=== PATIENT | female | born 1960 | race Caucasian/White ===

== ENCOUNTER 2017-04-26 04:07 | Inpatient (IN) | payer MEDICARE ==
[~2017-04-26] VITALS: Ht 162.6 cm; Wt 59.0 kg
[~2017-04-26 04:07] MED LIST: CIPRO500 MG PO; PREDNISONE20 MG PO; PROAIR HFA INH8.5 GM
[2017-04-26] MEDS ORDERED: ALBUTEROL SULF 0.083% NEB SOLN 3 ML NEB NEB STA (04:10)
[2017-04-26] MEDS ORDERED: IPRATROPIUM BROMIDE 0.02% 2.5 ML NEB NEB ONE (04:15)
[2017-04-26 04:27] LABS: BASOPHILS % 0.5 % (0.0-1.0); HEMATOCRIT 37.8 % (34.2-44.1); LYMPHOCYTES % 15.9 % (18.0-39.1); MEAN CORPUSCULAR HEMOGLOBIN 28.2 pg (28-32); MEAN CORPUSCULAR HGB CONC 31.7 g/dL (31-35); MEAN CORPUSCULAR VOLUME 88.9 fL (81-99); MONOCYTES # (AUTO) 0.7 (0.2-0.8); MONOCYTES % 11.5 % (4.4-11.3); NEUTROPHILS # (AUTO) 4.4 (2.1-6.9); NEUTROPHILS % 71.9 % (38.7-80.0); PLATELET COUNT 281 x10e3/uL (140-360); RED BLOOD COUNT 4.25 x10e6/uL (3.6-5.1); RED CELL DISTRIBUTION WIDTH 17.4 % (11.7-14.4)
[2017-04-26 04:43] LABS: ALANINE AMINOTRANSFERASE 10 IU/L (0-55); ALBUMIN 2.8 g/dL (3.5-5.0); ALBUMIN/GLOBULIN RATIO 0.7 (0.8-2.0); ALKALINE PHOSPHATASE 89 IU/L (40-150); ANION GAP 12.5 mmol/L (8-16); BLOOD UREA NITROGEN 17 mg/dL (7-26); BUN/CREATININE RATIO 16 (6-25); CALCIUM 9.1 mg/dL (8.4-10.2); CARBON DIOXIDE 29 mmol/L (22-29); CHLORIDE 96 mmol/L (98-107); CREATINE KINASE 16 IU/L (29-168); CREATININE, SERUM 1.05 mg/dL (0.57-1.11); EST GLOMERULAR FILTRATION RATE 54 ML/MIN (60-); GLUCOSE 240 mg/dL (74-118); POTASSIUM 4.5 mmol/L (3.5-5.1); SODIUM 133 mmol/L (136-145)
[2017-04-26 04:49] LABS: B-TYPE NATRIURETIC PEPTIDE2 85.6 pg/mL (0-100)
[2017-04-26 04:51] LABS: TROPONIN I 0.053 ng/mL (0-0.300)
[2017-04-26 05:12] LABS: BILIRUBIN,URINE NEGATIVE (NEGATIVE); KETONES,URINE NEGATIVE (NEGATIVE); LEUKOCYTE ESTERASE ,URINE NEGATIVE (NEGATIVE); NITRITE,URINE NEGATIVE (NEGATIVE); PROTEIN,URINE DIPSTICK 3+ (NEGATIVE); URINE UROBILINOGEN 0.2 mg/dL (0.2 - 1)
[2017-04-26 05:13] LABS: CLARITY,URINE CLEAR (CLEAR); COLOR,URINE YELLOW (YELLOW)
[2017-04-26 05:17] LABS: EPITHELIAL CELLS,URINE MODERATE /LPF; WBC,URINE (MAN) 0-5 /HPF (0-5)
--- NOTE | 2017-04-26 06:06 | Diagnostic Imaging Report ---
EXAMINATION: CHEST SINGLE (PORTABLE) INDICATION: Shortness of breath COMPARISON: None FINDINGS: TUBES and LINES: None. LUNGS: Lungs are not well inflated. There are bibasilar atelectasis. There is mild prominence of the central pulmonary vasculature, consistent with pulmonary venous congestion. PLEURA: No pleural effusion or pneumothorax. HEART AND MEDIASTINUM: The cardiomediastinal silhouette is unremarkable. BONES AND SOFT TISSUES: No acute osseous lesion. Partially visualized left humeral medullary leo. Soft tissues are unremarkable. UPPER ABDOMEN: No free air under the diaphragm. IMPRESSION: No acute thoracic abnormality. Signed by: Dr. Masoud Bunch M.D. on 04/26/2017 6:03 AM
[2017-04-26] MEDS ORDERED: ONDANSETRON HCL INJ 2 MG/ML VIAL IV PRN (06:15)
[2017-04-26] MEDS ORDERED: ACETAMINOPHEN 325 MG TAB PO PRN (06:15)
[2017-04-26] MEDS: OSELTAMIVIR PHOSPHATE 75 MG CAP PO SCH ×3 (06:25→18:06)
[2017-04-26] MEDS ORDERED: CEFTRIAXONE SOD 1 GM VIAL IV SCH (07:00)
[2017-04-26] MEDS: ALBUTEROL/IPRATROPIUM 3 ML NEB NEB SCH ×5 (07:36→23:45)
[2017-04-26 09:47] LABS: ABG HCO3 30 mmol/L (23-28); ABG PCO2 58 mmHg (41-51); ABG PH 7.32 (7.31-7.41); ABG PO2 186 mmHg (80-105)
[2017-04-26] MEDS: SODIUM CHLORIDE 0.9% 1000ML 1,000 ML IV SCH ×3 (09:57→21:38)
[2017-04-26] MEDS: METHYLPREDNISOLONE SOD SUCC 40 MG/ML VIAL IV SCH ×2 (09:58→18:06)
[2017-04-26] MEDS ORDERED: ALBUTEROL SULFATE HFA 8GM INHALATION AEROSOL INH SCH (11:00)
[2017-04-26] MEDS ORDERED: ALBUTEROL SULFATE HFA 8GM INHALATION AEROSOL INH PRN (12:15)
[2017-04-26] MEDS ORDERED: HYDROCODONE/APAP 5MG-325MG TAB PO ONE (12:30)
[2017-04-26 12:46] LABS: CREATINE KINASE MB 0.8 ng/mL (0.00-5.00); TROPONIN I 0.027 ng/mL (0-0.300)
--- NOTE | 2017-04-26 12:54 | History and Physical ---
She is a 56-year-old female, a patient of mine, who presented to the emergency room with complaint of shortness of breath. HISTORY OF PRESENT ILLNESS: Ms. Alma Austin is a 56-year-old female patient who presented with complaint of cough, congestion, and shortness of breath, which was worsening. It started 10 days ago. The patient has shortness of breath, which was noted and worsening when walking and exertion. The patient was having a cough and dyspnea. The patient has history of CHF and emphysema. REVIEW OF SYSTEMS: The patient has a cough, sore throat, shortness of breath, wheezing. Denies nausea or vomiting. PAST MEDICAL HISTORY: CHF and emphysema. PAST SURGICAL HISTORY: Shoulder repair. ALLERGIES: NO KNOWN DRUG ALLERGIES. MEDICATIONS: See from the list. SOCIAL HISTORY: This patient is a heavy smoker. Denies using alcohol. FAMILY HISTORY: Hypertension. PHYSICAL EXAMINATION GENERAL: She is a middle-aged female patient lying in bed, not in acute distress. VITAL SIGNS: Temperature 99.9, pulse rate 120, blood pressure 117/72, respirations 28. HEENT: Normocephalic, atraumatic. The patient is on a BiPAP mask ventilation. LUNGS: Bilateral diminished air entry, with rales and rhonchi present. HEART: S1 and S2 regular. A systolic murmur is present. ABDOMEN: Soft. Bowel sounds are present. NEUROLOGIC: No focal neurological deficit. ADMITTING IMPRESSION AND DIAGNOSES 1. Respiratory failure. 2. Pneumonia. 3. Chronic obstructive pulmonary disease with exacerbation. 4. Congestive heart failure. 5. Influenza. PLAN: The patient will be admitted with the above diagnoses. The patient will be given a BiPAP mask ventilation. The patient was given IV Solu-Medrol. The patient was also given Tamiflu. We are going to give her antibiotic Rocephin and Zithromax. We will obtain pulmonary and cardiology consultations. Job#: [id number]
[2017-04-26] MEDS: AZITHROMYCIN 500MG/NS 250 ML 250 ML IV SCH (13:15)
[2017-04-26] MEDS: CEFTRIAXONE SOD 1 GM VIAL IV SCH (18:06)
[2017-04-26] MEDS: BUDESONIDE/FORMOTEROL 160/4.5MCG INHALER INH SCH (19:00)
[2017-04-26 21:37] LABS: CREATINE KINASE MB 1.2 ng/mL (0.00-5.00); TROPONIN I 0.02 ng/mL (0-0.300)
--- NOTE | 2017-04-26 21:56 | Consultation ---
DATE OF CONSULTATION: April 26, 2017 PULMONARY CONSULTATION REQUESTING PHYSICIAN: Dr. Abilio Bansal. REASON FOR CONSULTATION: COPD. HISTORY OF PRESENT ILLNESS: Ms. Austin is a 56-year-old woman with history of hypertension and COPD, not on home oxygen, who presented to the hospital with complaint of shortness of breath. She states that she was recently hospitalized at [facility] on [address] where she was diagnosed with gastric infection. She states that she was having respiratory problems towards the end of the hospitalization and was discharged on nebulized Albuterol in addition to her usual inhalers. Typically, she uses Symbicort as well as p.r.n. Albuterol. She states that she has been having worsening shortness of breath over the last 3 days with a cough that is productive of yellow mucus. She is not short of breath at rest, but she is short of breath with even minimal exertion. She denies any fever or chills. She has a grandson at home who has been sick with respiratory problems. She has a previous history of smoking, but quit about 5 years ago. When she was seen in the emergency department, she was found to have poor air movement with wheezing and was started on bronchodilators as well as IV steroids for COPD. She was placed on BiPAP for relatively short period of time, but is currently on nasal cannula. She states that she is feeling fine when she is at rest, but again has shortness of breath with minimal exertion. REVIEW OF SYSTEMS: Positive for cough, shortness of breath with exertion, wheezing, chest tightness, fatigue. Otherwise, a 12-point review of systems was conducted and was found to be negative. PAST MEDICAL HISTORY: 1. Hypertension. 2. Chronic obstructive pulmonary disease. FAMILY HISTORY: History of asthma in her daughter. SOCIAL HISTORY: She quit smoking about 5 years ago. She was smoking 2 packs of cigarettes daily for about 20 years. ALLERGIES: NO KNOWN DRUG ALLERGIES. MEDICATIONS: Current medications include Albuterol, ipratropium, ceftriaxone, Solu-Medrol, Tamiflu, azithromycin, Zofran, Tylenol. PHYSICAL EXAMINATION VITAL SIGNS: Temperature 97.9 degrees Fahrenheit, heart rate 93, respiratory rate 24, oxygen saturation 94% on 2 liters nasal cannula. Blood pressure 94/63. GENERAL: The patient is lying in bed, in no distress, appears comfortable. EYES: Sclerae are anicteric. Conjunctivae pink. ENT: No oral lesions. Oral mucosa is moist. CHEST: She has decreased air movement bilaterally. Mild tachypnea. HEART: Regular rate and rhythm. S1 and S2. No murmurs. ABDOMEN: Soft, nontender, nondistended. Bowel sounds normoactive. EXTREMITIES: No edema, no cyanosis, no clubbing. SKIN: No rashes or bruises. NEUROLOGIC: Pupils are equally round and reactive to light. No facial droop. No nystagmus. LABORATORY DATA: Sodium 133, potassium 4.5, chloride 96, bicarbonate 29, creatinine 1.05, glucose 240, AST 17, ALT 10, CK 16, CK MB 0.6, troponin I 0.05, BNP 85, albumin 2.8. White blood cell count 6.1, hemoglobin 12, platelets 281,000. Urinalysis with 3+ protein, trace glucose, 1+ blood, 6-10 red blood cells, 0-5 red blood cells. Arterial blood gas showed pH of 7.32, pCO2 of 58, pO2 of 186. Influenza A antigen positive. IMAGING: One view chest x-ray which showed prominent central pulmonary vasculature, bibasilar atelectasis. IMPRESSION: Ms. Austin is a 56-year-old woman with history of hypertension and COPD who presented to the hospital with acute COPD exacerbation with acute on chronic hypercapnic respiratory failure. She appears to be improving with bronchodilator therapy and steroids. PLAN: 1. I agree with continuing with bronchodilator therapy as well as IV steroids. I will add Symbicort as well, which is her usual home medication for controller therapy. Will try to wean the IV steroids as her respiratory status improves. 2. She is on azithromycin and ceftriaxone. We can continue a 5-day course of azithromycin for COPD exacerbation. 3. She has influenza A infection for which she is on Tamiflu and complete a 5-day course of that as well. 4. I would start her on Lovenox for DVT prophylaxis. 5. Will wean the nasal cannula to maintain oxygen saturation greater than 89% and avoid hyperoxygenation. Thank you very much for the consultation. Will continue to follow with you, and please feel free to call if any questions. Job#: [id number]
[2017-04-26] MEDS: HYDROCODONE/APAP 5MG-325MG TAB PO PRN (22:09)
[2017-04-27] MEDS: ALBUTEROL/IPRATROPIUM 3 ML NEB NEB SCH ×6 (00:05→18:45)
[2017-04-27] MEDS: SODIUM CHLORIDE 0.9% 1000ML 1,000 ML IV SCH ×4 (05:00→20:12)
[2017-04-27] MEDS: METHYLPREDNISOLONE SOD SUCC 40 MG/ML VIAL IV SCH ×4 (05:00→17:15)
[2017-04-27 06:53] VITALS: BP 106/66
[2017-04-27] MEDS: CEFTRIAXONE SOD 1 GM VIAL IV SCH ×2 (06:53→20:12)
[2017-04-27] MEDS: HYDROCODONE/APAP 5MG-325MG TAB PO PRN ×3 (06:53→20:13)
[2017-04-27 08:00] VITALS: BP 159/74
[2017-04-27 08:04] LABS: BASOPHILS % 0.1 % (0.0-1.0); HEMATOCRIT 35.2 % (34.2-44.1); HEMOGLOBIN 11.1 g/dL (12.0-16.0); LYMPHOCYTES # (AUTO) 0.6 (1.0-3.2); LYMPHOCYTES % 7.5 % (18.0-39.1); MEAN CORPUSCULAR HEMOGLOBIN 28.3 pg (28-32); MEAN CORPUSCULAR HGB CONC 31.5 g/dL (31-35); MEAN CORPUSCULAR VOLUME 89.8 fL (81-99); MONOCYTES # (AUTO) 0.6 (0.2-0.8); MONOCYTES % 7.8 % (4.4-11.3); NEUTROPHILS # (AUTO) 6.2 (2.1-6.9); NEUTROPHILS % 84.3 % (38.7-80.0); PLATELET COUNT 241 x10e3/uL (140-360); RED BLOOD COUNT 3.92 x10e6/uL (3.6-5.1)
[2017-04-27 08:15] LABS: ALANINE AMINOTRANSFERASE 8 IU/L (0-55); ALBUMIN 2.3 g/dL (3.5-5.0); ALBUMIN/GLOBULIN RATIO 0.7 (0.8-2.0); ALKALINE PHOSPHATASE 68 IU/L (40-150); ANION GAP 13.8 mmol/L (8-16); BLOOD UREA NITROGEN 27 mg/dL (7-26); BUN/CREATININE RATIO 30 (6-25); CALCIUM 8.5 mg/dL (8.4-10.2); CARBON DIOXIDE 28 mmol/L (22-29); CHLORIDE 100 mmol/L (98-107); EST GLOMERULAR FILTRATION RATE > 60 ML/MIN (60-); GLUCOSE 319 mg/dL (74-118); POTASSIUM 4.8 mmol/L (3.5-5.1); SODIUM 137 mmol/L (136-145)
[2017-04-27] MEDS: OSELTAMIVIR PHOSPHATE 75 MG CAP PO SCH ×2 (10:16→16:40)
[2017-04-27] MEDS: ENOXAPARIN SOD INJ 40 MG/0.4 ML SYR SC SCH (10:17)
[2017-04-27] MEDS: AZITHROMYCIN 500MG/NS 250 ML 250 ML IV SCH (11:00)
[2017-04-27] MEDS: BUDESONIDE/FORMOTEROL 160/4.5MCG INHALER INH SCH ×2 (12:07→18:45)
--- NOTE | 2017-04-27 15:20 | Consultation ---
DATE OF CONSULTATION: April 26, 2017 REASON FOR CONSULTATION: CHF. CONSULTING PHYSICIAN: Dr. Abilio Bansal. HISTORY OF PRESENT ILLNESS: This is a 56-year-old female that presented with shortness of breath. She was found to have flu positive and she was admitted. She was complaining of shortness of breath on exertion, unable to carry out activity of daily living, she came in for evaluation. She was told in the past she has a history of CHF and hypertension, but was not on any medication. Her troponin was negative. EKG showed normal sinus reading. BNP 85.6. PAST MEDICAL HISTORY: Hypertension, COPD, and CHF. PAST SURGICAL HISTORY: Shoulder repair. FAMILY HISTORY: Positive for COPD. SOCIAL HISTORY: Lives at home with family. She quit smoking 5 years ago. MEDICATIONS: She was on albuterol inhaler at home. ALLERGIES: SHE IS NOT ALLERGIC TO ANY MEDICATION. REVIEW OF SYSTEMS: Negative except those mentioned above. She is positive for flu and COPD exacerbation. PHYSICAL EXAMINATION VITAL SIGNS: Temperature 99, heart rate 90, blood pressure 106/66, respirations 18, and oxygen saturation 97% on 3 liters nasal cannula. GENERAL: She is awake alert and oriented times 3. HEENT: Mucous membrane moist. NECK: Supple. LUNGS: Bilateral with decreased breath sounds. CARDIOVASCULAR: S1 and S2 present. ABDOMEN: Soft. NEUROLOGIC: Intact. EXTREMITIES: With no edema. LABORATORY DATA: Sodium 133, potassium 4.5, chloride 96, CO2 of 29, BUN 17, creatinine 1.05, and glucose 240. White blood cells 6.11, hemoglobin 12, hematocrit 37.8, and platelet 281. IMPRESSION 1. Possible congestive heart failure. 2. Flu positive. 3. Chronic obstructive pulmonary disease exacerbation. 4. Hypertension. ASSESSMENT AND PLAN: She has no clinical symptoms of CHF, but we will get an echocardiogram to assess the LV and the valve function. Her BNP is normal. Continue antibiotics and neb treatment. Further cardiac workup pending clinical course. Thank you for this consultation. DICTATED BY: JUDE POND NP Job#: [id number] SAK
[2017-04-27 17:11] VITALS: BP 115/56
[2017-04-27 18:22] VITALS: BP 115/56
[2017-04-27] MEDS ORDERED: LEVOFLOXACIN 500MG/D5W 100ML 100 ML IV SCH (18:45)
--- NOTE | 2017-04-28 01:17 | Progress Note ---
DATE: April 27, 2017 SUBJECTIVE: Patient was seen and evaluated in the ER. She is still on hold as they have been unable to get a bed for her. She actually has not needed to use BiPAP. Currently, is on nasal cannula. Seen along with her son. She is currently getting breathing treatment. Has been treated with Symbicort. She uses this at home, but the son who is at home states that the technique has not been appropriate. She is currently on Tamiflu for influenza. CURRENT MEDICATIONS: Albuterol, acetaminophen, ceftriaxone, azithromycin, prednisolone, ondansetron, budesonide, Tamiflu. LABS: Sodium 137, potassium 4.8, chloride 100, CO2 28, creatinine 0.9. Hemoglobin is 9.1. Bili 0.3. PHYSICAL EXAMINATION GENERAL: Elderly appearing female who does not appear in distress. HEENT: Anicteric sclerae. Oral mucosa is moist. NECK: Supple. CV: S1 and S2 heard. RESPIRATORY: Good expansion. I am not able to appreciate any wheezes. ABDOMEN: Soft and protuberant. EXTREMITIES: Has no cyanosis or clubbing. Past medical history and social history has been reviewed. IMPRESSION 1. Chronic obstructive pulmonary disease, acute exacerbation. 2. Hkuke-ep-hiqywnb hypercapnic failure. 3. Influenza A and bronchitis. 4. Need for use mechanical ventilator. PLAN: Patient will be continued on Tamiflu to complete 5 days. She is currently on ceftriaxone and azithromycin. I will go ahead and wean the steroids to methylprednisolone q.12 h., which I think is appropriate. She is getting inhalers on nasal cannula. I think she can go down to telemetry. I discussed this with the nursing staff. I also discussed with the son. Job#: [id number] NATIVIDAD
[2017-04-28] MEDS: ALBUTEROL/IPRATROPIUM 3 ML NEB NEB SCH ×5 (04:15→20:45)
[2017-04-28 04:18] VITALS: BP 108/70
[2017-04-28] MEDS: HYDROCODONE/APAP 5MG-325MG TAB PO PRN ×3 (05:47→17:42)
[2017-04-28] MEDS ORDERED: METHYLPREDNISOLONE SOD SUCC 40 MG/ML VIAL IV SCH (06:00)
[2017-04-28] MEDS: SODIUM CHLORIDE 0.9% 1000ML 1,000 ML IV SCH (06:05)
[2017-04-28] MEDS: BUDESONIDE/FORMOTEROL 160/4.5MCG INHALER INH SCH ×2 (07:00→19:00)
[2017-04-28] MEDS: CEFTRIAXONE SOD 1 GM VIAL IV SCH (07:35)
[2017-04-28] MEDS: ENOXAPARIN SOD INJ 40 MG/0.4 ML SYR SC SCH (09:37)
[2017-04-28] MEDS: OSELTAMIVIR PHOSPHATE 75 MG CAP PO SCH ×2 (09:37→17:42)
[2017-04-28] MEDS: AZITHROMYCIN 500MG/NS 250 ML 250 ML IV SCH (11:21)
[2017-04-28 20:00] VITALS: BP 144/84
[2017-04-28 20:45] VITALS: BP 144/84
[2017-04-29] VITALS: BP 159/88
[2017-04-29] MEDS: ALBUTEROL/IPRATROPIUM 3 ML NEB NEB SCH ×3 (00:15→11:09)
[2017-04-29] MEDS: CEFTRIAXONE SOD 1 GM VIAL IV SCH (06:00)
[2017-04-29 06:39] LABS: BASOPHILS % 0.2 % (0.0-1.0); EOSINOPHILS % 0.2 % (0.0-6.0); HEMATOCRIT 32.6 % (34.2-44.1); HEMOGLOBIN 10.2 g/dL (12.0-16.0); LYMPHOCYTES # (AUTO) 1.5 (1.0-3.2); LYMPHOCYTES % 34.2 % (18.0-39.1); MEAN CORPUSCULAR HEMOGLOBIN 28.5 pg (28-32); MEAN CORPUSCULAR HGB CONC 31.3 g/dL (31-35); MEAN CORPUSCULAR VOLUME 91.1 fL (81-99); MONOCYTES # (AUTO) 0.6 (0.2-0.8); MONOCYTES % 12.8 % (4.4-11.3); NEUTROPHILS # (AUTO) 2.3 (2.1-6.9); NEUTROPHILS % 52.4 % (38.7-80.0); PLATELET COUNT 209 x10e3/uL (140-360); RED BLOOD COUNT 3.58 x10e6/uL (3.6-5.1); RED CELL DISTRIBUTION WIDTH 17.1 % (11.7-14.4)
[2017-04-29] MEDS: BUDESONIDE/FORMOTEROL 160/4.5MCG INHALER INH SCH (07:00)
[2017-04-29 07:14] LABS: ALANINE AMINOTRANSFERASE 11 IU/L (0-55); ALBUMIN 2.2 g/dL (3.5-5.0); ALBUMIN/GLOBULIN RATIO 0.8 (0.8-2.0); ALKALINE PHOSPHATASE 60 IU/L (40-150); ANION GAP 10.5 mmol/L (8-16); BLOOD UREA NITROGEN 22 mg/dL (7-26); BUN/CREATININE RATIO 32 (6-25); CALCIUM 8.7 mg/dL (8.4-10.2); CARBON DIOXIDE 29 mmol/L (22-29); CHLORIDE 106 mmol/L (98-107); CREATININE, SERUM 0.69 mg/dL (0.57-1.11); EST GLOMERULAR FILTRATION RATE > 60 ML/MIN (60-); GLUCOSE 147 mg/dL (74-118); POTASSIUM 4.5 mmol/L (3.5-5.1); SODIUM 141 mmol/L (136-145)
[2017-04-29 08:00] VITALS: BP 110/66
[2017-04-29] MEDS: OSELTAMIVIR PHOSPHATE 75 MG CAP PO SCH (08:25)
[2017-04-29] MEDS: ENOXAPARIN SOD INJ 40 MG/0.4 ML SYR SC SCH (08:25)
[2017-04-29] MEDS ORDERED: PREDNISONE 20 MG TAB PO SCH (09:00)
[2017-04-29 10:06] LABS: LYMPHOCYTES % (MANUAL) 33 % (19-48); MONOCYTES % (MANUAL) 10 % (3.4-9.0); NEUTROPHILS % (MANUAL) 51 % (40-74)
[2017-04-29 10:07] LABS: ANISOCYTOSIS SLIGHT; HYPOCHROMASIA SLIGHT; PLATELET ESTIMATE ADEQUATE; PLATELET MORPHOLOGY COMMENT NORMAL; RBC MORPHOLOGY COMMENT NORMAL
[2017-04-29] MEDS ORDERED: METOPROLOL TARTRATE INJ 1 MG/ML VIAL IV PRN (10:30)
[2017-04-29] MEDS: AZITHROMYCIN 500MG/NS 250 ML 250 ML IV SCH (11:00)
[2017-04-29 12:00] VITALS: BP 146/84
--- NOTE | 2017-04-29 14:20 | Discharge Summary ---
This is a 56-year-old female patient of mine, presented with a complaint of severe cough and fever and weakness. ADMITTING PATIENT DIAGNOSES 1. Acute respiratory insufficiency. 2. Pneumonia. 3. Influenza. 4. Chronic obstructive pulmonary disease exacerbation. 5. Congestive heart failure. HOSPITAL COURSE SUMMARY: Patient was admitted with above diagnoses. Patient was treated with Tamiflu, neb treatment, IV antibiotics and IV Solu-Medrol, and pulmonary and cardiology consultation was called. Telemetry monitoring was done and the patient was stabilized, and patient was given physical therapy and occupational therapy also. Patient was treated with IV Rocephin and Zithromax. Patient had a chest x-ray done, which was negative. Patient had a flu test done that was positive. Now upon stabilization, patient will be discharged home with finishing dose of the Tamiflu and Ceftin antibiotic and neb treatment. Patient will be followed up as an outpatient. Job#: [id number] SAK
== END 2017-04-29 12:41 | disposition home or self-care (01) | DRG 189 ==
LOC: ER 04:07 → ERHOLD 06:19 → MED/SURG2 04-28 17:57
PROVIDERS: ADMIT Internal Medicine; ATTEND Internal Medicine
DX: J96.22 Acute and chronic respiratory failure with hypercapnia (principal); J44.0 Chronic obstructive pulmonary disease with (acute) lower respiratory infection; E87.8 Other disorders of electrolyte and fluid balance, not elsewhere classified; I50.9 Heart failure, unspecified; E87.1 Hypo-osmolality and hyponatremia; J44.1 Chronic obstructive pulmonary disease with (acute) exacerbation; J45.909 Unspecified asthma, uncomplicated; J11.1 Influenza due to unidentified influenza virus with other respiratory manifestations; R73.9 Hyperglycemia, unspecified; J40 Bronchitis, not specified as acute or chronic; F17.210 Nicotine dependence, cigarettes, uncomplicated
CPT/HCPCS: 36415; 36600; 71010; 80053; 81001; 82550; 82553; 82805; 82948; 83605; 83880; 84484; 85025; 87040; 87086; 87400; 93005; 93306; 94640; 94660; 97139; 99285; J0456; J0696; J1650; J2920; J7030

== ENCOUNTER → 2017-08-24 | Outpatient (CLI) | payer MEDICARE ==
--- NOTE | 2017-08-27 08:57 | Diagnostic Imaging Report ---
#[id number] - MGSCRBIL #BILATERAL DIGITAL SCREENING MAMMOGRAM WITH CAD: 08/24/2017 CLINICAL: Routine screening. No prior exams were available for comparison. Current study contains 4 films. The tissue of both breasts is predominantly fatty. Current study was also evaluated with a Computer Aided Detection (CAD) system. There are benign calcifications in both breasts. No significant masses, calcifications, or other findings are seen in either breast. IMPRESSION: BENIGN There is no mammographic evidence of malignancy. A 1 year screening mammogram is recommended. The patient will be notified by letter of the results. Catrachito neves/rowena:08/26/2017 12:10:40 Hot Plate Plywood Press Operator: Nilda SHELTON(R)(M), [facility] letter sent: Normal Exam Mammogram BI-RADS: 2 Benign
== END ==
LOC: MAMMO 09:09
PROVIDERS: ATTEND Internal Medicine
DX: Z12.31 Encounter for screening mammogram for malignant neoplasm of breast (principal)
CPT/HCPCS: 77067

== ENCOUNTER 2018-02-04 12:33 | Inpatient (IN) | payer MEDICARE ==
[2018-02-04] VITALS (15 sets, daily range): BP systolic 99–118; BP diastolic 56–69
[~2018-02-04] VITALS: Ht 162.6 cm; Wt 75.8 kg
[2018-02-04] MEDS ORDERED: IPRATROPIUM BROMIDE 0.02% 2.5 ML NEB NEB STA (12:36)
--- OUTSIDE RECORDS SUMMARY | 2018-02-04 12:36 | XMS REPORT ---
Author Author [facility] Address Unknown Phone Unavailable Care Team Providers Care Flower Pot Press Operator Name Role Phone Teresita LARA Unavailable Unavailable Chantal TURCIOS Unavailable Unavailable Problems This patient has no known problems. Allergies, Adverse Reactions, Alerts This patient has no known allergies or adverse reactions. Medications This patient has no known medications. Results Test Description Test Time Test Comments Text Results Atomic Results Result Comments MAMMOGRAPHY DIGITAL SCR BILAT [place] [address] Patient Name: FLACO SORIANO MR #: [id number] : 1960 Age/Sex: 56/F Req #: [id number] Adm Physician: Ordered by: PAULA LARA MD Report #: [id number] Location: MAMMO Room/Bed: Procedure: [id number] MG/MAMMOGRAPHY DIGITAL SCR BILAT Exam Date: 08/24/17 Exam Time: 0946 REPORT STATUS: Signed #[id number] - MGSCRBIL #BILATERAL DIGITAL SCREENING MAMMOGRAM WITH CAD: 08/24/2017 CLINICAL: Routine screening. No prior exams were available for comparison. Current study contains 4 films. The tissue of both breasts is predominantly fatty. Current study was also evaluated with a Computer Aided Detection (CAD) system. There are benign calcifications in both breasts. No significant masses, calcifications, or other findings are seen in either breast. IMPRESSION: BENIGN There is no mammographic evidence of malignancy. A 1 year screening mammogram is recommended. The patient will be notified by letter of the results. Adri neves/edilma:08/26/2017 12:10:40 Metal Grader: Nilda ALFRED)(Teresita), [facility] lexis er sent: Normal Exam Mammogram BI-RADS: 2 Benign Dictated By: ADRI MAN DO 1210 Transcribed By: EDILMA on 08/26/17 1210 COPY TO: PAULA LARA MD CHEST SINGLE (PORTABLE) [place] [id number] Patient Name: FLACO SORIANO MR #: [id number] : 1960 Age/Sex: 56/F Req #: [id number] Adm Physician: Ordered by: FAUSTO TURCIOS MD Report #: [id number] Location: ER Room/Bed: Procedure: [id number] DX/CHEST SINGLE (PORTABLE) Exam Date: 04/26/17 Exam Time: 0450 REPORT STATUS: Signed EXAMINATION: CHEST SINGLE (PORTABLE) INDICATION: Shortness of breath COMPARISON: None FINDINGS: TUBES and LINES: None. LUNGS: Lungs are not well inflated. There are bibasilar atelectasis. There is mild prominence of the central pulmonary vasculature, consistent with pulmonary venous congestion. PLEURA: No pleural effusion or pneumothorax. HEART AND MEDIASTINUM: The cardiomediastinal silhouette is unremarkable. BONES AND SOFT TISSUES: No acute osseous lesion. Partially visualized left humeral medullary leo. Soft tissues are unremarkable. UPPER ABDOMEN: No free air under the diaphragm. IMPRESSION: No acute thoracic abnormality. Signed by: Dr. Masoud Bunch M.D. on 04/26/2017 6:03 AM Dictated By: MASOUD SHEEHAN MD E lectronically Signed By: MASOUD SHEEHAN MD on 04/26/17602 Transcribed By: LETTY on 04/26/17602 COPY TO: FAUSTO TURCIOS MD
[2018-02-04] MEDS ORDERED: MIDAZOLAM HCL 2 MG/2 ML VIAL ONE (12:39)
[2018-02-04] MEDS ORDERED: ETOMIDATE 40 MG/ 20ML VIAL IV ONE (12:39)
[2018-02-04] MEDS ORDERED: SUCCINYLCHOLINE 200 MG/10 ML SYR ONE (12:39)
[2018-02-04 13:13] LABS: BASOPHILS # (AUTO) 0.1 (0.0-0.1); BASOPHILS % 0.6 % (0.0-1.0); EOSINOPHILS % 0.1 % (0.0-6.0); HEMATOCRIT 39.9 % (34.2-44.1); LYMPHOCYTES % 12.7 % (18.0-39.1); MEAN CORPUSCULAR HGB CONC 30.1 g/dL (31-35); MEAN CORPUSCULAR VOLUME 86.4 fL (81-99); MONOCYTES # (AUTO) 1.6 (0.2-0.8); MONOCYTES % 10.4 % (4.4-11.3); NEUTROPHILS # (AUTO) 11.4 (2.1-6.9); NEUTROPHILS % 72.7 % (38.7-80.0); PLATELET COUNT 373 x10e3/uL (140-360); RED BLOOD COUNT 4.62 x10e6/uL (3.6-5.1); RED CELL DISTRIBUTION WIDTH 18.2 % (11.7-14.4)
[2018-02-04] MEDS ORDERED: ALBUTEROL SULF 0.083% NEB SOLN 3 ML NEB NEB ONE (13:15)
[2018-02-04 13:31] LABS: ALBUMIN 2.9 g/dL (3.5-5.0); ALBUMIN/GLOBULIN RATIO 0.7 (0.8-2.0); ANION GAP 19.3 mmol/L (8-16); CALCIUM 9.7 mg/dL (8.4-10.2); CREATININE, SERUM 1.06 mg/dL (0.57-1.11)
[2018-02-04 13:35] LABS: POTASSIUM 5.3 mmol/L (3.5-5.1)
[2018-02-04 13:36] LABS: BILIRUBIN,URINE NEGATIVE (NEGATIVE); CLARITY,URINE SL CLOUDY (CLEAR); COLOR,URINE YELLOW (YELLOW); KETONES,URINE NEGATIVE (NEGATIVE); LEUKOCYTE ESTERASE ,URINE NEGATIVE (NEGATIVE); NITRITE,URINE NEGATIVE (NEGATIVE); PROTEIN,URINE DIPSTICK 2+ (NEGATIVE); URINE UROBILINOGEN 1 mg/dL (0.2 - 1)
[2018-02-04 13:38] LABS: CREATINE KINASE MB 16.2 ng/mL (0-5.0)
[2018-02-04 13:47] LABS: BACTERIA,URINE MANY /HPF; EPITHELIAL CELLS,URINE FEW /LPF; TRANSITIONAL EPI CELLS,URINE FEW; WBC,URINE (MAN) 0-5 /HPF (0-5)
--- NOTE | 2018-02-04 14:12 | Diagnostic Imaging Report ---
Examination: Single AP view of the chest. COMPARISON: 04/26/2017 INDICATION: Shortness of breath DISCUSSION: Limited examination secondary to patient positioning with superimposition of the lower facial structures over the lung apices. [place]-shaped radiopaque structure is likely external to the patient. Lung bases are clear. No large pleural effusion. Stable cardiomediastinal contour. Mild prominence of the pulmonary interstitial markings. No acute osseous abnormality. Posttraumatic changes of the proximal left humerus with an unhealed surgical neck fracture are unchanged. IMPRESSION: Limited examination secondary to patient positioning as described above. Pulmonary venous congestion. Signed by: Dr. Margarito Cota M.D. on 02/04/2018 2:08 PM
[2018-02-04] MEDS ORDERED: FENTANYL CITRATE/PF 100MCG/2 ML INJ IV ONE (14:15)
[2018-02-04] MEDS ORDERED: MIDAZOLAM HCL 2 MG/2 ML VIAL IV STA (14:15)
[2018-02-04] MEDS ORDERED: FENTANYL CITRATE/PF 100MCG/2 ML INJ ONE (14:15)
[2018-02-04 14:25] LABS: ABG PH 7.22 (7.31-7.41)
[2018-02-04 14:27] LABS: ABG HCO3 35 mmol/L (23-28); ABG PCO2 84 mmHg (41-51); ABG PO2 451 mmHg (80-105)
--- NOTE | 2018-02-04 14:39 | Diagnostic Imaging Report ---
EXAMINATION: CHEST SINGLE (PORTABLE) INDICATION: ^post tube COMPARISON: Chest radiograph 02/04/2018 FINDINGS: AP view TUBES and LINES: Interval placement of endotracheal tube with tip overlying the mid trachea, 3.9 cm above the rebekah. LUNGS: Lungs are well inflated. Worsening bilateral interstitial edema. No new consolidations. PLEURA: No pleural effusion or pneumothorax. HEART AND MEDIASTINUM: The cardiomediastinal silhouette is unremarkable.. BONES AND SOFT TISSUES: Status post fixation of the left humerus. Soft tissues are unremarkable. UPPER ABDOMEN: No free air under the diaphragm. IMPRESSION: New endotracheal tube, in adequate position. Worsening bilateral interstitial edema. Signed by: Dr. Ana Rosa Pappas M.D. on 02/04/2018 2:35 PM
[2018-02-04] MEDS: MIDAZOLAM HCL 25 MG in SODIUM CHLORIDE 0.9% 50ML 45 ML IV PRN ×3 (14:49→22:58)
[2018-02-04] MEDS: FENTANYL CITRATE INJ 2,000 MCG in SODIUM CHLORIDE 0.9% 250ML 210 ML IV PRN (14:59)
[2018-02-04] MEDS ORDERED: PROPOFOL IV EMULSION 10 MG/ML 20 ML VIAL ONE (15:02)
[2018-02-04] MEDS ORDERED: SODIUM CHLORIDE 0.9% 1000ML 1,000 ML ONE (16:18)
[2018-02-04] MEDS ORDERED: SODIUM CHLORIDE 0.9% 1000ML 1,000 ML IV ONE (16:30)
[2018-02-04] MEDS ORDERED: VANCOMYCIN HCL 1GM/NS 250 ML BAG IV SCH (16:30)
[2018-02-04] MEDS ORDERED: CEFEPIME HCL 1 GM VIAL IV SCH ×2 (16:30)
[2018-02-04] MEDS ORDERED: SOD POLYSTYRENE SULFONATE SUSP 15 GM/60 ML BTL PO ONE (16:30)
[2018-02-04] MEDS ORDERED: VANCOMYCIN 1GM/NS 250 ML 250 ML IV SCH (16:30)
[2018-02-04] MEDS: ALBUTEROL/IPRATROPIUM 3 ML NEB NEB PRN (17:00)
[2018-02-04] MEDS ORDERED: IPRATROPIUM BROMIDE 0.02% 2.5 ML NEB ONE (17:11)
[2018-02-04] MEDS: VANCOMYCIN 1GM/NS 250 ML 250 ML IV SCH (17:20)
[2018-02-04 17:29] LABS: LYMPHOCYTES % (MANUAL) 12 % (19-48); MONOCYTES % (MANUAL) 8 % (3.4-9.0); NEUTROPHILS % (MANUAL) 79 % (40-74); PLATELET ESTIMATE ADEQUATE; PLATELET MORPHOLOGY COMMENT NORMAL; RBC MORPHOLOGY COMMENT NORMAL
[2018-02-04] MEDS ORDERED: PAROXETINE HCL20 MG PO (17:47)
[2018-02-04] MEDS ORDERED: GABAPENTIN300 MG PO (17:47)
[2018-02-04] MEDS ORDERED: VENTOLIN HFA18 GM INFIL (17:47)
[2018-02-04] MEDS ORDERED: METOPROLOL SUCC25 MG (17:47)
[2018-02-04] MEDS ORDERED: SYMBICORT 16010.2 GM INFIL (17:47)
[2018-02-04 17:58] LABS: ABG HCO3 29 mmol/L (23-28); ABG PCO2 51 mmHg (41-51); ABG PH 7.36 (7.31-7.41); ABG PO2 106 mmHg (80-105)
[2018-02-04] MEDS ORDERED: BUDESONIDE/FORMOTEROL 160/4.5MCG INHALER INH SCH (18:15)
[2018-02-04] MEDS: BUDESONIDE/FORMOTEROL 160/4.5MCG INHALER INH SCH (18:30)
--- NOTE | 2018-02-04 19:16 | Diagnostic Imaging Report ---
EXAM: ABDOMEN-1VIEW (KUB), DATE: 02/04/2018 5:08 PM INDICATION: NG tube placement COMPARISON: Chest radiograph 02/04/2018 FINDINGS: LINES/TUBES: Nasogastric tube sidehole projects over the gastroesophageal junction. Tip projects over the gastric body. BOWEL PATTERN: No evidence for obstruction. Large amount of stool within the descending colon. SOFT TISSUES: No abnormal calcifications. No mass effect. LUNG BASES: Please refer to same-day chest radiograph for description of interstitial edema. BONES: No acute findings. IMPRESSION: Nasogastric tube sidehole projects over the gastroesophageal junction. Tip projects over the gastric body. Nonobstructive bowel gas pattern. Signed by: DR. Pratik Mcintosh MD on 02/04/2018 7:13 PM
[2018-02-04 19:24] LABS: CHOL/HDL RATIO 4.6 (3.0-3.6)
[2018-02-04 19:44] LABS: THYROID STIMULATING HORMONE 0.303 uIU/mL (0.350-4.940)
--- NOTE | 2018-02-04 20:36 | History and Physical ---
She is a 57-year-old female patient of mine, presented to the emergency room with respiratory distress. HISTORY OF PRESENT ILLNESS: Ms. Alma Austin is a 57-year-old female patient presented to the emergency room in respiratory distress. Patient is orally intubated. Patient was sick for last 3 days and she had dyspnea, which was getting worse and today is very severe dyspnea with cough and productive sputum. Patient denies having any shortness of breath, chest discomfort, but patient was in respiratory distress and on arrival in the emergency room, patient was intubated in the emergency room. PAST MEDICAL HISTORY: Severe COPD, hypertension. MEDICATIONS: See from the list. ALLERGIES: NO KNOWN DRUG ALLERGIES. SOCIAL HISTORY: Patient is currently a smoker. Denies using alcohol. FAMILY HISTORY: Negative. REVIEW OF SYSTEMS: Unable to obtain review of system examination. PHYSICAL EXAMINATION GENERAL: She is a middle-aged female patient, orally intubated on the mechanical ventilation, not in any acute distress. VITAL SIGNS: Temperature 99, pulse rate 130, blood pressure 118/70, and respiration rate 20. NECK: JVD present. LUNGS: Bilateral fair air entry, rhonchi present, rales present. HEART: S1, S2, regular. Systolic murmur present. ABDOMEN: Soft. Bowel sounds present. NEUROLOGIC: No focal neurological deficit. ADMITTING IMPRESSION AND DIAGNOSES 1. Acute respiratory distress. 2. Acute respiratory failure. 3. Chronic obstructive pulmonary disease with exacerbation. 4. Pulmonary edema. 5. Congestive heart failure. PLAN: Patient has a very high LFTs and high troponin level. Patient has been admitted with above diagnosis and will start cardiology consult, Dr. Saenz and obtain echocardiogram and give patient on diuretic, IV Lasix and IV antibiotics, cefepime and vancomycin. We will obtain pulmonary consultation, Dr. Lockett. We will also give her Lovenox. Job#: [id number] RASHEL AQUINO
--- NOTE | 2018-02-04 20:46 | Consultation ---
DATE OF CONSULTATION: February 04, 2018 REQUESTING PHYSICIAN: Dr. Roberto Bansal. REASON FOR CONSULTATION: CHF, respiratory failure. HISTORY OF PRESENT ILLNESS: Ms. Austin is a 57-year-old lady with past medical history as listed below, apparently was not her usual self for the last 3 to 4 days. She was lethargic, restless, apparently was urinating on herself and so the son decided to bring her to the hospital. Patient was noted to be in respiratory distress. Initially, she was placed on BiPAP, but breathing continued to be labored and so she was intubated, placed on a vent. Patient is currently on a vent. No history can be obtained from the patient. Most of the history is obtained from the nurse and the chart. Patient reportedly also had some cough and expectoration of some phlegm. Her LFTs are elevated. Troponins are also elevated. REVIEW OF SYMPTOMS: Not obtainable. ALLERGIES: NO KNOWN DRUG ALLERGIES. MEDICATIONS: See list. PAST MEDICAL HISTORY 1. History of hypertension. 2. History of COPD. 3. History of CHF. PAST SURGICAL HISTORY: History of shoulder surgery. SOCIAL HISTORY: She reportedly quit smoking about 5 years back. FAMILY HISTORY: Noncontributory. PHYSICAL EXAMINATION GENERAL: Thin built lady, who is intubated on a vent. VITALS: Heart rate is 79, blood pressure is 123/68. HEENT: Atraumatic. Orotracheal tube in place. NECK: No JVD, bruit, thyromegaly, or lymphadenopathy. CARDIOVASCULAR: First and second heart sounds heard. No murmurs, rubs, or gallops appreciated. CHEST: Decreased air entry at the bases with diffuse scattered rales. ABDOMEN: Soft. EXTREMITIES: Trace edema. LABS: WBC is 15.7, hemoglobin is 12.0, hematocrit 39.9, platelets 373. Sodium is 140, potassium 5.3, chloride is 100, bicarb is 26, BUN is 49, creatinine is 1.0, glucose 168. AST is 1012, ALT is 1030, total bili 0.6, alk phos is 129. Troponin is 2.5. Total protein is 7.2. EKG shows sinus rhythm 92 beats per minute, normal axis, normal intervals, no acute ST-T changes. Chest x-ray shows pulmonary venous congestion. IMPRESSION 1. Respiratory failure. 2. Congestive heart failure. 3. Non-ST elevation myocardial infarction. 4. History of chronic obstructive pulmonary disease. 5. History of hypertension. 6. Possible congestive hepatitis. PLAN 1. IV diuresis. 2. Get echocardiogram to assess LV function and valvular function. 3. Patient is currently on beta-blockers, can continue the same. 4. Hold up on statins due to deranged LFTs. 5. Start aspirin with low-dose Lovenox. 6. Further cardiac workup depending on clinical course. As always, I appreciate and thank you very much for your referrals. Job#: [id number] VAS
[2018-02-04] MEDS: ALBUTEROL SULF 0.083% NEB SOLN 3 ML NEB NEB SCH (21:00)
[2018-02-04] MEDS: GABAPENTIN 300 MG CAP PO SCH ×2 (21:30→23:04)
[2018-02-04] MEDS: ALBUTEROL SULFATE HFA 8GM INHALATION AEROSOL INH SCH (22:00)
[2018-02-04] MEDS ORDERED: SOD POLYSTYRENE SULFONATE SUSP 15 GM/60 ML BTL ONE (23:33)
[2018-02-05] VITALS (60 sets, daily range): BP systolic 75–118; BP diastolic 42–83
[2018-02-05] MEDS: ALBUTEROL SULF 0.083% NEB SOLN 3 ML NEB NEB SCH ×4 (02:00→19:25)
[2018-02-05] MEDS: ALBUTEROL SULFATE HFA 8GM INHALATION AEROSOL INH SCH ×5 (02:00→21:43)
[2018-02-05] MEDS: MIDAZOLAM HCL 25 MG in SODIUM CHLORIDE 0.9% 50ML 45 ML IV PRN ×6 (02:03→23:30)
[2018-02-05 04:36] LABS: BASOPHILS % 0.3 % (0.0-1.0); HEMATOCRIT 33.1 % (34.2-44.1); HEMOGLOBIN 10.1 g/dL (12.0-16.0); LYMPHOCYTES # (AUTO) 0.6 (1.0-3.2); LYMPHOCYTES % 5.8 % (18.0-39.1); MEAN CORPUSCULAR HEMOGLOBIN 26.1 pg (28-32); MEAN CORPUSCULAR HGB CONC 30.5 g/dL (31-35); MEAN CORPUSCULAR VOLUME 85.5 fL (81-99); MONOCYTES # (AUTO) 0.5 (0.2-0.8); MONOCYTES % 4.5 % (4.4-11.3); NEUTROPHILS # (AUTO) 9.2 (2.1-6.9); NEUTROPHILS % 85.3 % (38.7-80.0); PLATELET COUNT 244 x10e3/uL (140-360); RED BLOOD COUNT 3.87 x10e6/uL (3.6-5.1); RED CELL DISTRIBUTION WIDTH 18.1 % (11.7-14.4)
[2018-02-05 05:01] LABS: ALBUMIN 2.2 g/dL (3.5-5.0); ALBUMIN/GLOBULIN RATIO 0.6 (0.8-2.0); CALCIUM 8.8 mg/dL (8.4-10.2)
[2018-02-05] MEDS: FENTANYL CITRATE INJ 2,000 MCG in SODIUM CHLORIDE 0.9% 250ML 210 ML IV PRN ×3 (07:00→14:00)
[2018-02-05] MEDS: BUDESONIDE/FORMOTEROL 160/4.5MCG INHALER INH SCH ×2 (07:15→18:30)
[2018-02-05] MEDS: ALBUTEROL/IPRATROPIUM 3 ML NEB NEB PRN (07:15)
[2018-02-05] MEDS ORDERED: METOPROLOL SUCCINATE 25 MG TAB XL PO SCH (09:00)
[2018-02-05] MEDS: FUROSEMIDE INJ 10 MG/ML 4 ML VIAL IV SCH ×2 (09:00→16:07)
--- NOTE | 2018-02-05 09:02 | Diagnostic Imaging Report ---
EXAMINATION: CHEST SINGLE (PORTABLE) INDICATION: ^intubation/resp distress COMPARISON: Chest x-ray 02/04/2018 FINDINGS: AP view TUBES and LINES: The endotracheal tube is in good position. LUNGS: Lungs are well inflated. There are bibasilar atelectasis. There is slight increase perihilar interstitial opacities, consistent with interstitial edema. PLEURA: No pleural effusion or pneumothorax. HEART AND MEDIASTINUM: The cardiomediastinal silhouette is unremarkable. BONES AND SOFT TISSUES: Left humeral diaphyseal leo remain stable position. No acute osseous lesion. Soft tissues are unremarkable. UPPER ABDOMEN: No free air under the diaphragm. IMPRESSION: Slight increase in interstitial edema. Signed by: Dr. Prateek Dong M.D. on 02/05/2018 8:58 AM
[2018-02-05] MEDS: PREDNISONE 20 MG TAB PO SCH (09:12)
[2018-02-05] MEDS: PAROXETINE HCL 20 MG TAB PO SCH (09:12)
[2018-02-05] MEDS: ASPIRIN 325 MG TAB PO SCH (09:12)
[2018-02-05] MEDS: AZITHROMYCIN ORAL SUSP 200 MG/5 ML PO SCH ×3 (12:00→16:07)
[2018-02-05] MEDS ORDERED: DEXTROSE 50% SYRINGE 50 ML IV PRN (12:00)
[2018-02-05 12:08] LABS: CREATINE KINASE MB 3.2 ng/mL (0-5.0)
[2018-02-05] MEDS: CEFEPIME HCL 1 GM VIAL IV SCH (13:54)
[2018-02-05] MEDS: INSULIN LISPRO 100 UNIT/1 ML 3ML VIAL SQ SCH ×2 (14:00→18:17)
[2018-02-05] MEDS: ENOXAPARIN 30 MG/0.3 ML SYR SC SCH (16:07)
[2018-02-05] MEDS: VANCOMYCIN 1GM/NS 250 ML 250 ML IV SCH (16:07)
[2018-02-05] MEDS ORDERED: SODIUM CHLORIDE 0.9% 250ML 250 ML ONE (16:07)
[2018-02-05] MEDS ORDERED: INSULIN LISPRO 100 UNIT/1 ML 3ML VIAL SQ SCH (16:30)
--- NOTE | 2018-02-05 16:30 | Diagnostic Imaging Report ---
EXAM: US CHEST (INCL MEDIASTINUM) INDICATION: ^effusions COMPARISON: Chest x-ray 02/05/2018 TECHNIQUE: Transverse and sagittal images were performed of the bilateral hemithorax.. FINDINGS: No pleural effusions. IMPRESSION: No pleural effusions. Signed by: Dr. Prateek Dong M.D. on 02/05/2018 4:27 PM
--- NOTE | 2018-02-05 16:32 | Diagnostic Imaging Report ---
EXAM: Complete Abdominal Ultrasound INDICATION: ^sepsis, positive blood culture COMPARISON: None. TECHNIQUE: Transverse and longitudinal images of the upper abdomen were obtained. FINDINGS: Liver: Size: 18.5 cm in the right midclavicular line, enlarged Appearance: Normal echogenicity, smooth contour Mass: No focal masses. 0.6 x 0.2 x 0.5 cm calcification seen in the left hepatic lobe. Spleen: Size: 11.2 cm in length, normal Echogenicity: Normal Mass: No focal masses Gallbladder: Stones/Sludge: Trace sludge Wall: 0.3 cm Appearance: No pericholecystic fluid or hydrops. Sonographic Campbell's Sign: Negative Bile Ducts: Intrahepatic Ducts: No dilatation Extrahepatic Ducts: Common bile duct measures 0.6 cm, no dilatation Pancreas: Incompletely visualized due to overlying bowel gas, but no abnormality identified involving the visualized portions of the pancreas. Right Kidney: Size: 10.4 x 4.3 x 4.9 cm Echogenicity: Normal Parenchymal thickness: Normal Collecting System: No hydronephrosis Stone: None Cyst/Mass: None Left Kidney: Size: 9.8 x 4.9 x 4.4 cm Echogenicity: Normal Parenchymal thickness: Normal Collecting System: No hydronephrosis Stone: None Cyst/Mass: None Vessels: Aorta: Visualized portions are normal Inferior Vena Cava: Visualized portions are normal Main Portal Vein: 0.8 cm, normal size with hepatopetal flow. Free Fluid: No ascites or pleural effusion IMPRESSION: 1. Suboptimal exam secondary to positioning. 2. Mild hepatomegaly. 3. Trace gallbladder sludge. Signed by: Dr. Prateek Dong M.D. on 02/05/2018 4:29 PM
--- NOTE | 2018-02-05 18:29 | Consultation ---
DATE OF CONSULTATION: February 05, 2018 INFECTIOUS DISEASE CONSULTATION ATTENDING PHYSICIAN: Dr. Abilio Bansal. REASON FOR CONSULTATION: Bacteremia. Thank you, Dr. Bansal for asking me to see this patient. HISTORY: The patient is a 57-year-old woman referred for bacteremia. She is unable to give history because she is intubated and sedated. The chart review showed that she was admitted through the emergency department with acute exacerbation of chronic obstructive pulmonary disease and acute hypercapnic respiratory failure. She presented to the emergency department yesterday with respiratory distress. The patient was having progressive cough productive of sputum for 3 days. There was no mentioned of fever or chest pain. The patient appeared to be taking prednisolone 20 mg by moth daily prior to admission. In the emergency department, she was noted to have temperature of 98.9 degrees Fahrenheit, pulse rate 95, respiratory rate 14, blood pressure 168/80, and oxygen saturation 100% on FiO2 100%. Initial laboratory studies showed blood leukocyte counts of 15,710 with 72.7% neutrophils, BUN 49, creatinine 1.06, AST 1012, ALT 1030, alk phos 129, total bilirubin 0.6, and troponin 2.568. Chest x-ray showed pulmonary venous congestion. PAST MEDICAL HISTORY: Hypertension, chronic obstructive pulmonary disease, and depression. PAST SURGICAL HISTORY: Left shoulder surgery. ALLERGIES: NO KNOWN DRUG ALLERGIES. MEDICATIONS: See MA> The current antibiotics are cefepime 1 g IV piggyback q.12 hours, azithromycin 200 mg per feeding tube daily, and vancomycin 1 g IV piggyback q.24 hours. IMMUNIZATION: Influenza and pneumococcal vaccination status cannot be verified at this time. FAMILY HISTORY: Noncontributory. SOCIAL HISTORY: Patient is a current smoker. Alcohol use history cannot be verified at this time. REVIEW OF SYSTEMS: Unable to obtain. PHYSICAL EXAMINATION GENERAL: Critically ill. VITAL SIGNS: T-max 98.9, pulse 68, respiratory rate 18, blood pressure 92/50, weight 130 pounds. HEENT: Normocephalic. There is no icterus or injection of conjunctivae. There is no ear or nasal discharge. Orally intubated. NECK: Supple. LUNGS: Few rhonchi bilaterally. HEART: Normal S1 and S2. Regular. ABDOMEN: Soft. The patient grimaces with right upper quadrant palpation. EXTREMITIES: There is no edema, clubbing, or cyanosis. SKIN: There is no acute erythema. MACHINE SET UP TECHNICIAN: Sedated. LABORATORY AND DIAGNOSTICS: WBC 10,810, hemoglobin 10.1, platelets 244, neutrophils 85.3, lymph 5.8, mono 4.5, eosinophil 0, basophil 0.3. BUN 51, creatinine 1, AST 336, ALT 653, alk phos 96, total bilirubin 0.6. Troponin 1.302. Sputum culture is pending. Blood culture is growing gram-positive cocci in clusters. IMPRESSION 1. Sepsis/? bacteremia present on admission. 2. Pneumonia present on admission. 3. Acute exacerbation of chronic obstructive pulmonary disease. 4. Non-ST segment elevation myocardial infarction. 5. Acute hypoxic and hypercapnic respiratory failure. 6. Abnormal liver enzymes. PLAN 1. Check rapid influenza test and abdominal ultrasound. 2. Increase azithromycin to 500 mg daily. Job#: [id number] RICHARD AQUINO
[2018-02-05 19:03] LABS: CREATINE KINASE MB 2.8 ng/mL (0-5.0)
--- NOTE | 2018-02-05 22:53 | Consultation ---
DATE OF CONSULTATION: February 05, 2018 PULMONARY CONSULTATION This is a patient of Dr. Abilio Bansal and Dr. Saenz. This is a 57-year-old woman, admitted in respiratory distress. She had been ill approximately for 3 days. She is currently intubated. History is obtained from the chart. PAST MEDICAL HISTORY: She has a history of hypertension, COPD, and congestive heart failure. ALLERGIES: NO KNOWN ALLERGIES. SOCIAL HISTORY: She is an ex-smoker, smoked 2 packs a day for 20 years. MEDICATIONS: Ventolin, Symbicort, Neurontin, metoprolol, Paxil, and prednisone. PHYSICAL EXAMINATION GENERAL: Well-developed white female, looking somewhat older than her stated age, intubated orally. OT tube is in place. HEENT: Head is normocephalic and atraumatic. NECK: Trachea midline. LUNGS: Bilateral rhonchi. HEART: Regular rhythm. ABDOMEN: Nontender. EXTREMITIES: Nonedematous. IMPRESSION 1. Bilateral pneumonia versus congestive heart failure, gram-positive organisms in the blood. Cardiac enzymes consistent with ME. Nonspecific ST changes on EKG. 2. Apparent respiratory failure. 3. Apparent diabetes, presumably exacerbated by chronic steroid use. 4. Elevated liver functions, possibly related to shock, although the patient has low normal blood pressure. PLAN 1. Empiric antibiotics to cover gram-positive organisms noted in the blood. 2. Tube feedings. 3. Bronchodilators. Defer weaning today. 4. Cardiac cath is planned. 5. Continue Staph cover. Thank you for this kind referral. Job#: [id number] RASHEL
[2018-02-05] MEDS ORDERED: MIDAZOLAM HCL 5 MG/ML VIAL ONE (23:26)
[2018-02-05] MEDS ORDERED: SODIUM CHLORIDE 0.9% 50ML 50 ML ONE (23:26)
[2018-02-06] VITALS (91 sets, daily range): BP systolic 57–123; BP diastolic 37–92
[2018-02-06] MEDS: CEFEPIME HCL 1 GM VIAL IV SCH ×2 (00:35→12:00)
[2018-02-06] MEDS: ALBUTEROL SULFATE HFA 8GM INHALATION AEROSOL INH SCH ×4 (02:00→22:00)
[2018-02-06] MEDS: ALBUTEROL SULF 0.083% NEB SOLN 3 ML NEB NEB SCH ×3 (02:50→19:15)
[2018-02-06 04:21] LABS: BASOPHILS % 0.1 % (0.0-1.0); HEMATOCRIT 30.8 % (34.2-44.1); HEMOGLOBIN 9.7 g/dL (12.0-16.0); MEAN CORPUSCULAR HEMOGLOBIN 26.5 pg (28-32); MEAN CORPUSCULAR HGB CONC 31.5 g/dL (31-35); MEAN CORPUSCULAR VOLUME 84.2 fL (81-99); MONOCYTES # (AUTO) 1.1 (0.2-0.8); NEUTROPHILS # (AUTO) 11.6 (2.1-6.9); NEUTROPHILS % 83.6 % (38.7-80.0); PLATELET COUNT 201 x10e3/uL (140-360); RED BLOOD COUNT 3.66 x10e6/uL (3.6-5.1); RED CELL DISTRIBUTION WIDTH 18.2 % (11.7-14.4)
[2018-02-06 04:40] LABS: ALBUMIN 2.3 g/dL (3.5-5.0); ALBUMIN/GLOBULIN RATIO 0.7 (0.8-2.0); ANION GAP 15.8 mmol/L (8-16); CALCIUM 9.1 mg/dL (8.4-10.2); CREATININE, SERUM 1.21 mg/dL (0.57-1.11); POTASSIUM 3.8 mmol/L (3.5-5.1)
[2018-02-06 05:13] LABS: CREATINE KINASE MB 2.3 ng/mL (0-5.0)
--- NOTE | 2018-02-06 06:45 | Diagnostic Imaging Report ---
EXAMINATION: CHEST SINGLE (PORTABLE) INDICATION: Pneumonia COMPARISON: 02/05/2018 FINDINGS: TUBES and LINES: Endotracheal and nasogastric tubes are stable in good position LUNGS: Lungs are well inflated. Lungs are clear. There is mild prominence of the central pulmonary vasculature, consistent with pulmonary venous congestion. PLEURA: No pleural effusion or pneumothorax. HEART AND MEDIASTINUM: The cardiomediastinal silhouette is unremarkable. BONES AND SOFT TISSUES: No acute osseous lesion. Open reduction internal fixation of humeral fracture. Soft tissues are unremarkable. UPPER ABDOMEN: No free air under the diaphragm. IMPRESSION: Central vascular congestion is again noted, however, no evidence of airspace disease to suggest pneumonia. Signed by: Dr. Masoud Bunch M.D. on 02/06/2018 6:42 AM
[2018-02-06] MEDS: INSULIN LISPRO 100 UNIT/1 ML 3ML VIAL SQ SCH ×4 (06:50→17:30)
[2018-02-06] MEDS: FUROSEMIDE INJ 10 MG/ML 4 ML VIAL IV SCH ×2 (08:32→17:36)
[2018-02-06] MEDS: ASPIRIN 325 MG TAB PO SCH (08:32)
[2018-02-06] MEDS: PREDNISONE 20 MG TAB PO SCH (08:32)
[2018-02-06] MEDS: PANTOPRAZOLE 40 MG 10ML VIAL IV SCH (08:32)
[2018-02-06] MEDS: PAROXETINE HCL 20 MG TAB PO SCH (08:32)
[2018-02-06] MEDS: BUDESONIDE/FORMOTEROL 160/4.5MCG INHALER INH SCH ×2 (16:02→18:30)
[2018-02-06] MEDS: AZITHROMYCIN ORAL SUSP 200 MG/5 ML PO SCH (17:30)
[2018-02-06] MEDS: ENOXAPARIN 30 MG/0.3 ML SYR SC SCH (17:30)
[2018-02-06] MEDS: VANCOMYCIN 1GM/NS 250 ML 250 ML IV SCH (17:36)
[2018-02-06] MEDS: MIDAZOLAM HCL 25 MG in SODIUM CHLORIDE 0.9% 50ML 45 ML IV PRN (21:00)
[2018-02-06] MEDS: FENTANYL CITRATE INJ 2,000 MCG in SODIUM CHLORIDE 0.9% 250ML 210 ML IV PRN (21:00)
[2018-02-06] MEDS: GABAPENTIN 300 MG CAP PO SCH (21:01)
[2018-02-07] VITALS (82 sets, daily range): BP systolic 86–137; BP diastolic 43–111
[2018-02-07] MEDS: CEFEPIME HCL 1 GM VIAL IV SCH ×2 (00:17→15:01)
[2018-02-07] MEDS: INSULIN LISPRO 100 UNIT/1 ML 3ML VIAL SQ SCH ×4 (00:46→18:00)
[2018-02-07] MEDS: ALBUTEROL SULFATE HFA 8GM INHALATION AEROSOL INH SCH ×5 (02:00→22:55)
[2018-02-07] MEDS: ALBUTEROL SULF 0.083% NEB SOLN 3 ML NEB NEB SCH ×4 (02:20→19:25)
[2018-02-07] MEDS: MIDAZOLAM HCL 25 MG in SODIUM CHLORIDE 0.9% 50ML 45 ML IV PRN ×2 (03:43→21:11)
[2018-02-07 05:15] LABS: ANION GAP 16.7 mmol/L (8-16); CALCIUM 9.4 mg/dL (8.4-10.2); CREATININE, SERUM 1.17 mg/dL (0.57-1.11); POTASSIUM 3.7 mmol/L (3.5-5.1)
[2018-02-07] MEDS: BUDESONIDE/FORMOTEROL 160/4.5MCG INHALER INH SCH ×2 (06:30→19:25)
[2018-02-07 06:34] LABS: BASOPHILS % 0.1 % (0.0-1.0); EOSINOPHILS % 0.2 % (0.0-6.0); HEMATOCRIT 29.1 % (34.2-44.1); HEMOGLOBIN 9.2 g/dL (12.0-16.0); LYMPHOCYTES # (AUTO) 1.5 (1.0-3.2); MEAN CORPUSCULAR HEMOGLOBIN 26.3 pg (28-32); MEAN CORPUSCULAR HGB CONC 31.6 g/dL (31-35); MEAN CORPUSCULAR VOLUME 83.1 fL (81-99); MONOCYTES % 10.4 % (4.4-11.3); NEUTROPHILS # (AUTO) 6.9 (2.1-6.9); NEUTROPHILS % 72.4 % (38.7-80.0); PLATELET COUNT 193 x10e3/uL (140-360); RED CELL DISTRIBUTION WIDTH 18.3 % (11.7-14.4)
[2018-02-07] MEDS: ASPIRIN 325 MG TAB PO SCH (09:00)
[2018-02-07] MEDS: FUROSEMIDE INJ 10 MG/ML 4 ML VIAL IV SCH ×2 (09:38→17:09)
[2018-02-07] MEDS: PANTOPRAZOLE 40 MG 10ML VIAL IV SCH (09:38)
[2018-02-07] MEDS: PAROXETINE HCL 20 MG TAB PO SCH (09:39)
[2018-02-07] MEDS: PREDNISONE 20 MG TAB PO SCH (09:39)
[2018-02-07] MEDS: FENTANYL CITRATE INJ 2,000 MCG in SODIUM CHLORIDE 0.9% 250ML 210 ML IV PRN ×2 (10:18→21:10)
[2018-02-07] MEDS ORDERED: IOPAMIDOL 370 MG/ML 200 ML INFUS..BTL INJ ONE (12:41)
[2018-02-07] MEDS ORDERED: HEPARIN SOD/SOD CHLORIDE 2,000 ML ONE (12:41)
[2018-02-07] MEDS ORDERED: LIDOCAINE HCL 1% LOCAL INJ 20 ML VIAL ONE ×2 (12:42)
[2018-02-07] MEDS: ENOXAPARIN 30 MG/0.3 ML SYR SC SCH (16:56)
[2018-02-07] MEDS: AZITHROMYCIN ORAL SUSP 200 MG/5 ML PO SCH (17:00)
[2018-02-07] MEDS: VANCOMYCIN 1GM/NS 250 ML 250 ML IV SCH (17:09)
--- NOTE | 2018-02-07 18:59 | Operative Report ---
DATE OF PROCEDURE: February 07, 2018 PROCEDURES PERFORMED: 1. Left heart catheterization. 2. Selective coronary angiogram. 3. Left ventriculogram. ANESTHESIA: Two percent lidocaine for local anesthesia. Patient was on a vent and sedated with fentanyl. BLOOD LOSS: 2 mL. INDICATIONS: [id number] AK. DESCRIPTION OF PROCEDURE: After informed consent, patient was brought to the cardiac catheterization laboratory and placed on the table. Both groins were painted and draped in a sterile fashion. Lidocaine was injected in the right groin for local anesthesia. Right femoral artery was accessed by Seldinger technique, and a 5-Czech sheath was placed in the right femoral artery. Left main artery was cannulated using a JL4, 5-Czech catheter. Coronary angiogram was performed, and images were obtained in multiple views. The right artery was cannulated using a 3DRC 5-Czech catheter. Coronary angiogram was performed, and images were obtained in multiple views. LV-gram was performed using a pigtail catheter by hand injection. Patient tolerated the procedure without any complications. REPORT: LEFT MAIN: Normal caliber and no significant stenosis. LEFT ANTERIOR DESCENDING: Narrow caliber, is tortuous, no significant stenosis. LEFT CIRCUMFLEX: Normal caliber, no significant stenosis. RIGHT CORONARY artery: Is of narrow caliber, has diffuse luminal irregularities. LV-GRAM: Preserved LV function. Overall ejection fraction 50%. HEMODYNAMICS: The aortic pressure is 145/60. LV pressure is 137/3. LVEDP is 19. PLAN: Medical management. Job#: [id number] EV
[2018-02-07] MEDS: GABAPENTIN 300 MG CAP PO SCH (20:48)
[2018-02-08] VITALS (97 sets, daily range): BP systolic 72–160; BP diastolic 40–99
[2018-02-08] MEDS: CEFEPIME HCL 1 GM VIAL IV SCH ×3 (00:33→23:33)
[2018-02-08] MEDS: ALBUTEROL SULF 0.083% NEB SOLN 3 ML NEB NEB SCH ×4 (01:15→18:55)
[2018-02-08] MEDS: ALBUTEROL SULFATE HFA 8GM INHALATION AEROSOL INH SCH ×6 (01:15→22:00)
[2018-02-08] MEDS: INSULIN LISPRO 100 UNIT/1 ML 3ML VIAL SQ SCH ×5 (05:40→23:45)
--- NOTE | 2018-02-08 06:18 | Diagnostic Imaging Report ---
CHEST SINGLE (PORTABLE), 02/08/2018 5:00 AM Technique: CHEST SINGLE (PORTABLE) Comparison: 02/06/2018 Clinical history: Follow-up Findings: Stable cardiac silhouette, bones, soft tissues. Partially imaged left humeral deformity and ORIF. Impression: 1. Lines/Tubes: Stable ET tube. NG tube is poorly visualized distally. 2. Stable central interstitial prominence. No consolidation. 3. No effusion or pneumothorax. Signed by: Dr Tiffany Clay MD on 02/08/2018 6:14 AM
[2018-02-08] MEDS: BUDESONIDE/FORMOTEROL 160/4.5MCG INHALER INH SCH ×2 (07:00→18:30)
[2018-02-08] MEDS: PANTOPRAZOLE 40 MG 10ML VIAL IV SCH (09:12)
[2018-02-08] MEDS: FUROSEMIDE INJ 10 MG/ML 4 ML VIAL IV SCH (09:12)
[2018-02-08 09:34] LABS: ABG HCO3 44 mmol/L (23-28); ABG PCO2 70 mmHg (41-51); ABG PH 7.41 (7.31-7.41); ABG PO2 60 mmHg (80-105)
[2018-02-08] MEDS ORDERED: DEXMEDETOMIDINE HCL 200 MCG in SODIUM CHLORIDE 0.9% 50ML 48 ML IV PRN (10:15)
[2018-02-08] MEDS: PREDNISONE 20 MG TAB PO SCH (11:00)
[2018-02-08] MEDS: PAROXETINE HCL 20 MG TAB PO SCH (11:00)
[2018-02-08] MEDS ORDERED: ACETAMINOPHEN 325 MG/10 ML UDC NG PRN (12:45)
[2018-02-08] MEDS: DEXMEDETOMIDINE 200MCG/NS 50ML 50 ML IV PRN ×3 (15:00→21:00)
[2018-02-08] MEDS: VANCOMYCIN 1GM/NS 250 ML 250 ML IV SCH (17:30)
[2018-02-08] MEDS: AZITHROMYCIN ORAL SUSP 200 MG/5 ML PO SCH (18:17)
[2018-02-08] MEDS: ENOXAPARIN 30 MG/0.3 ML SYR SC SCH (18:23)
[2018-02-08] MEDS: GABAPENTIN 300 MG CAP PO SCH (21:02)
[2018-02-09] VITALS (81 sets, daily range): BP systolic 53–167; BP diastolic 32–84
[2018-02-09] MEDS: FENTANYL CITRATE INJ 2,000 MCG in SODIUM CHLORIDE 0.9% 250ML 210 ML IV PRN (00:47)
[2018-02-09] MEDS: ALBUTEROL SULF 0.083% NEB SOLN 3 ML NEB NEB SCH ×4 (01:55→18:30)
[2018-02-09] MEDS: ALBUTEROL SULFATE HFA 8GM INHALATION AEROSOL INH SCH ×6 (02:00→22:00)
[2018-02-09] MEDS: DEXMEDETOMIDINE 200MCG/NS 50ML 50 ML IV PRN ×2 (04:46)
--- NOTE | 2018-02-09 05:46 | Diagnostic Imaging Report ---
CHEST SINGLE (PORTABLE), 02/09/2018 5:14 AM Technique: CHEST SINGLE (PORTABLE) Comparison: Previous day Clinical history: Respiratory failure Findings: Stable cardiac silhouette, bones, soft tissues. Partially imaged left humeral deformity and ORIF. Impression: 1. Lines/Tubes: Stable ET tube 4.5 cm above the rebekah and subdiaphragmatic NG tube. 2. Increased central interstitial/vascular prominence. No consolidation. 3. No effusion or pneumothorax. Signed by: Dr Tiffany Clay MD on 02/09/2018 5:43 AM
[2018-02-09] MEDS: BUDESONIDE/FORMOTEROL 160/4.5MCG INHALER INH SCH ×2 (06:30→18:30)
[2018-02-09] MEDS: INSULIN LISPRO 100 UNIT/1 ML 3ML VIAL SQ SCH ×3 (06:45→17:04)
[2018-02-09] MEDS: ASPIRIN 81 MG CHEW TAB NG SCH (08:42)
[2018-02-09] MEDS: PANTOPRAZOLE 40 MG 10ML VIAL IV SCH (08:42)
[2018-02-09] MEDS: PAROXETINE HCL 20 MG TAB PO SCH (08:42)
[2018-02-09] MEDS: PREDNISONE 20 MG TAB PO SCH (08:42)
[2018-02-09] MEDS: FUROSEMIDE INJ 10 MG/ML 4 ML VIAL IV SCH (09:00)
[2018-02-09] MEDS ORDERED: ASPIRIN 81 MG ENTERIC COATED PO SCH (09:00)
[2018-02-09] MEDS ORDERED: CEFTRIAXONE SOD 1 GM VIAL IV SCH (09:00)
[2018-02-09] MEDS ORDERED: ASPIRIN 325 MG TAB NG SCH (09:00)
[2018-02-09 10:08] LABS: ABG HCO3 41 mmol/L (23-28); ABG PCO2 67 mmHg (41-51); ABG PO2 89 mmHg (80-105)
[2018-02-09] MEDS: CEFTRIAXONE SOD 1 GM/NS 50 ML 50 ML IV SCH ×2 (15:32→21:28)
[2018-02-09] MEDS: ENOXAPARIN 30 MG/0.3 ML SYR SC SCH (16:44)
[2018-02-09] MEDS: GABAPENTIN 300 MG CAP PO SCH (19:15)
[2018-02-09] MEDS ORDERED: HALOPERIDOL LACTATE 5 MG/ML VIAL ONE (21:49)
[2018-02-09] MEDS: HALOPERIDOL LACTATE 5 MG/ML VIAL IV PRN (21:59)
[2018-02-10] VITALS (86 sets, daily range): BP systolic 72–125; BP diastolic 45–95
[2018-02-10] MEDS: ALBUTEROL SULF 0.083% NEB SOLN 3 ML NEB NEB SCH ×4 (00:30→18:45)
[2018-02-10] MEDS: ALBUTEROL SULFATE HFA 8GM INHALATION AEROSOL INH SCH ×3 (00:52→18:00)
[2018-02-10] MEDS: INSULIN LISPRO 100 UNIT/1 ML 3ML VIAL SQ SCH ×4 (05:37→17:44)
[2018-02-10] MEDS: BUDESONIDE/FORMOTEROL 160/4.5MCG INHALER INH SCH ×2 (07:35→18:45)
[2018-02-10] MEDS: PREDNISONE 20 MG TAB PO SCH (07:41)
[2018-02-10] MEDS: ASPIRIN 81 MG CHEW TAB NG SCH (07:41)
[2018-02-10] MEDS: PAROXETINE HCL 20 MG TAB PO SCH (07:41)
[2018-02-10] MEDS: PANTOPRAZOLE 40 MG 10ML VIAL IV SCH (09:00)
[2018-02-10] MEDS: FUROSEMIDE INJ 10 MG/ML 4 ML VIAL IV SCH (09:00)
[2018-02-10] MEDS ORDERED: PNEUMOCOCCAL VACCINE POLYVALENT 23 MCG/0.5 ML VIAL IM ONE (09:45)
[2018-02-10] MEDS: CEFTRIAXONE SOD 1 GM/NS 50 ML 50 ML IV SCH ×2 (11:39→20:57)
[2018-02-10] MEDS: HALOPERIDOL LACTATE 5 MG/ML VIAL IV PRN ×2 (15:37→20:57)
[2018-02-10] MEDS: ENOXAPARIN 30 MG/0.3 ML SYR SC SCH (16:26)
[2018-02-10] MEDS: GABAPENTIN 300 MG CAP PO SCH (20:07)
[2018-02-11] VITALS (63 sets, daily range): BP systolic 57–127; BP diastolic 38–93
[2018-02-11] MEDS: ALBUTEROL SULF 0.083% NEB SOLN 3 ML NEB NEB SCH ×4 (01:25→19:01)
[2018-02-11] MEDS: HALOPERIDOL LACTATE 5 MG/ML VIAL IV PRN (03:43)
[2018-02-11 05:05] LABS: BASOPHILS % 0.3 % (0.0-1.0); EOSINOPHILS # (AUTO) 0.2 (0.0-0.4); EOSINOPHILS % 2.5 % (0.0-6.0); HEMATOCRIT 37.2 % (34.2-44.1); HEMOGLOBIN 11.1 g/dL (12.0-16.0); LYMPHOCYTES # (AUTO) 1.2 (1.0-3.2); LYMPHOCYTES % 13.5 % (18.0-39.1); MEAN CORPUSCULAR HEMOGLOBIN 26.1 pg (28-32); MEAN CORPUSCULAR HGB CONC 29.8 g/dL (31-35); MEAN CORPUSCULAR VOLUME 87.5 fL (81-99); MONOCYTES # (AUTO) 0.6 (0.2-0.8); MONOCYTES % 7.4 % (4.4-11.3); NEUTROPHILS # (AUTO) 6.6 (2.1-6.9); PLATELET COUNT 283 x10e3/uL (140-360); RED BLOOD COUNT 4.25 x10e6/uL (3.6-5.1); RED CELL DISTRIBUTION WIDTH 18.5 % (11.7-14.4)
[2018-02-11 05:30] LABS: ANION GAP 21.4 mmol/L (8-16); CALCIUM 10.2 mg/dL (8.4-10.2); CREATININE, SERUM 1.15 mg/dL (0.57-1.11); POTASSIUM 3.4 mmol/L (3.5-5.1)
[2018-02-11] MEDS: INSULIN LISPRO 100 UNIT/1 ML 3ML VIAL SQ SCH ×4 (05:37→18:00)
[2018-02-11] MEDS: ALBUTEROL SULFATE HFA 8GM INHALATION AEROSOL INH SCH ×4 (06:00→18:00)
[2018-02-11] MEDS: PANTOPRAZOLE 40 MG 10ML VIAL IV SCH (09:00)
[2018-02-11] MEDS: FUROSEMIDE INJ 10 MG/ML 4 ML VIAL IV SCH (09:00)
[2018-02-11] MEDS: PREDNISONE 20 MG TAB PO SCH (09:00)
[2018-02-11] MEDS: ASPIRIN 81 MG CHEW TAB NG SCH (09:00)
[2018-02-11] MEDS: PAROXETINE HCL 20 MG TAB PO SCH (09:00)
[2018-02-11] MEDS: KCL 20MEQ/.9 SOD CHL 1,000 ML IV SCH ×2 (10:15→23:35)
[2018-02-11] MEDS: CEFTRIAXONE SOD 1 GM/NS 50 ML 50 ML IV SCH ×2 (10:22→20:56)
[2018-02-11] MEDS ORDERED: POTASSIUM CHLORIDE 20MEQ/100ML 200 ML IV ONE (10:30)
[2018-02-11] MEDS: BUDESONIDE/FORMOTEROL 160/4.5MCG INHALER INH SCH ×3 (11:01→19:01)
[2018-02-11] MEDS ORDERED: METOPROLOL TARTRATE INJ 1 MG/ML VIAL IV PRN (15:30)
[2018-02-11] MEDS: ENOXAPARIN 30 MG/0.3 ML SYR SC SCH (16:35)
[2018-02-11] MEDS: GABAPENTIN 300 MG CAP PO SCH (20:19)
[2018-02-12] MEDS: ALBUTEROL SULF 0.083% NEB SOLN 3 ML NEB NEB SCH ×4 (01:57→19:00)
[2018-02-12 02:00] VITALS: BP 92/48
[2018-02-12 05:21] LABS: INR 1.06; PARTIAL THROMBOPLASTIN TIME 27.5 seconds (23.8-35.5); PROTHROMBIN TIME 14.8 seconds (11.9-14.5)
[2018-02-12 05:40] LABS: ALBUMIN 3.1 g/dL (3.5-5.0); ALBUMIN/GLOBULIN RATIO 0.8 (0.8-2.0); ANION GAP 15.7 mmol/L (8-16); CALCIUM 9.9 mg/dL (8.4-10.2); CREATININE, SERUM 1.06 mg/dL (0.57-1.11); POTASSIUM 3.7 mmol/L (3.5-5.1)
[2018-02-12] MEDS: INSULIN LISPRO 100 UNIT/1 ML 3ML VIAL SQ SCH ×4 (05:48→17:23)
[2018-02-12] MEDS: ALBUTEROL SULFATE HFA 8GM INHALATION AEROSOL INH SCH ×4 (06:00→18:00)
[2018-02-12] MEDS: BUDESONIDE/FORMOTEROL 160/4.5MCG INHALER INH SCH ×2 (06:30→18:30)
[2018-02-12 07:00] VITALS: BP 94/43
[2018-02-12 07:48] VITALS: BP 94/43
--- NOTE | 2018-02-12 08:21 | Diagnostic Imaging Report ---
EXAM: Modified barium swallow INDICATION: Acute respiratory failure, dysphagia COMPARISON: None FINDINGS: This examination was conducted in conjunction with speech pathologist. Patient was given, by mouth, liquids and solids of various consistencies. Examination showed premature spillage over the base of the tongue and vallecula with all consistencies. Laryngeal penetration was noted with thin liquids, nectar and honey thick liquids. Aspiration was noted inconsistently with thin, nectar and honey thick liquids during the swallow Fluoro time: 2.2 minutes IMPRESSION: Moderate oral and severe pharyngeal dysphagia with silent inconsistent aspiration of thin, nectar and honey thick liquids. Please see speech pathology report for detailed description and recommendations.> Signed by: Dr. Titi Meza M.D. on 02/12/2018 8:18 AM
[2018-02-12] MEDS: PANTOPRAZOLE 40 MG 10ML VIAL IV SCH (09:00)
[2018-02-12] MEDS: ASPIRIN 81 MG CHEW TAB NG SCH (09:00)
[2018-02-12] MEDS: PAROXETINE HCL 20 MG TAB PO SCH (09:00)
[2018-02-12] MEDS: FUROSEMIDE INJ 10 MG/ML 4 ML VIAL IV SCH (09:00)
[2018-02-12] MEDS: CEFTRIAXONE SOD 1 GM/NS 50 ML 50 ML IV SCH ×2 (09:45→21:27)
[2018-02-12] MEDS ORDERED: PROPOFOL IV EMULSION 10 MG/ML 20 ML VIAL ONE (11:18)
[2018-02-12 11:50] VITALS: BP 121/65
[2018-02-12 15:50] VITALS: BP 114/69
[2018-02-12] MEDS: GABAPENTIN 300 MG CAP PO SCH (21:26)
[2018-02-12] MEDS: KCL 20MEQ/.9 SOD CHL 1,000 ML IV SCH (21:27)
[2018-02-13] VITALS (7 sets, daily range): BP systolic 110–149; BP diastolic 59–93
--- NOTE | 2018-02-13 01:20 | Operative Report ---
DATE OF PROCEDURE: February 12, 2018 REFERRING PHYSICIAN: Dr. Roberto Lara. PROCEDURES PERFORMED 1. Esophagogastroduodenoscopy. 2. Percutaneous endoscopic gastrostomy tube placement. INDICATIONS FOR PROCEDURE: Dysphagia, abnormal modified barium swallow. MEDICATION: Patient was done under MAC. Please see anesthesiologist's note. PROCEDURE: With the patient in the supine position, a flexible fiberoptic Olympus gastroscope was introduced into the esophagus under direct visualization without any difficulty. There was some patchy erythema noted in the distal esophagus. The scope was then advanced with ease into the stomach traversing a small sliding hiatal hernia. The mucosa overlying the body and the antrum revealed some patchy areas of erythema. Pylorus was intubated with ease and the scope was advanced all the way to the second portion of the duodenum. The scope was then withdrawn slowly. Mucosa overlying the proximal second portion and the duodenal bulb, which was not very well visualized, grossly appeared to be within normal limits. The scope was then withdrawn back into the stomach and retroflexed. Mucosa overlying the fundus appeared to be within normal limits. The previously described hiatal hernia was also noted in the retroflexed position. The scope was then straightened out and after localization of a safe entry point through external digital palpation and transabdominal illumination, PEG tube insertion was carried out in the usual fashion. The scope was subsequently withdrawn after documenting a good positioning of the intragastric bumper. Patient tolerated the procedure well. IMPRESSION 1. Distal esophagitis. 2. Hiatal hernia. 3. Gastritis. 4. Percutaneous endoscopic gastrostomy tube insertion carried out in the usual fashion. Patient tolerated the procedure well. PLAN: PEG tube to drain to gravity x24 hours and the Ramires bag then can use. Abdominal binder to be applied for the next 4 to 5 days so that patient will not tug on the tube and potentially dislodge it. Job#: [id number] LPA cc:DR. Roberto LARA
[2018-02-13] MEDS: ALBUTEROL SULF 0.083% NEB SOLN 3 ML NEB NEB SCH ×4 (02:10→19:35)
[2018-02-13 05:11] LABS: BASOPHILS % 0.3 % (0.0-1.0); EOSINOPHILS # (AUTO) 0.4 (0.0-0.4); EOSINOPHILS % 3.2 % (0.0-6.0); HEMATOCRIT 38.3 % (34.2-44.1); HEMOGLOBIN 11.1 g/dL (12.0-16.0); LYMPHOCYTES # (AUTO) 2.2 (1.0-3.2); LYMPHOCYTES % 18.7 % (18.0-39.1); MEAN CORPUSCULAR HEMOGLOBIN 25.7 pg (28-32); MEAN CORPUSCULAR VOLUME 88.7 fL (81-99); MONOCYTES # (AUTO) 0.7 (0.2-0.8); MONOCYTES % 6.2 % (4.4-11.3); NEUTROPHILS # (AUTO) 8.4 (2.1-6.9); NEUTROPHILS % 71.3 % (38.7-80.0); PLATELET COUNT 281 x10e3/uL (140-360); RED BLOOD COUNT 4.32 x10e6/uL (3.6-5.1); RED CELL DISTRIBUTION WIDTH 18.6 % (11.7-14.4)
[2018-02-13 05:30] LABS: ANION GAP 14.3 mmol/L (8-16); BLOOD UREA NITROGEN 39 mg/dL (7-26); BUN/CREATININE RATIO 42 (6-25); CALCIUM 9.6 mg/dL (8.4-10.2); CARBON DIOXIDE 35 mmol/L (22-29); CHLORIDE 110 mmol/L (98-107); CREATININE, SERUM 0.92 mg/dL (0.57-1.11); EST GLOMERULAR FILTRATION RATE > 60 ML/MIN (60-); GLUCOSE 131 mg/dL (74-118); POTASSIUM 3.3 mmol/L (3.5-5.1); SODIUM 156 mmol/L (136-145)
[2018-02-13] MEDS: INSULIN LISPRO 100 UNIT/1 ML 3ML VIAL SQ SCH ×5 (05:43→21:04)
[2018-02-13] MEDS: KCL 20MEQ/.9 SOD CHL 1,000 ML IV SCH (06:09)
[2018-02-13] MEDS: BUDESONIDE/FORMOTEROL 160/4.5MCG INHALER INH SCH ×2 (06:30→19:35)
[2018-02-13] MEDS: ALBUTEROL SULFATE HFA 8GM INHALATION AEROSOL INH SCH ×4 (07:45→19:35)
[2018-02-13] MEDS: PAROXETINE HCL 20 MG TAB PO SCH (09:00)
[2018-02-13] MEDS: ASPIRIN 81 MG CHEW TAB NG SCH (09:00)
[2018-02-13] MEDS: CEFTRIAXONE SOD 1 GM/NS 50 ML 50 ML IV SCH ×2 (09:54→21:03)
[2018-02-13] MEDS: FUROSEMIDE INJ 10 MG/ML 4 ML VIAL IV SCH (09:54)
[2018-02-13] MEDS: PANTOPRAZOLE 40 MG 10ML VIAL IV SCH (09:54)
[2018-02-13] MEDS ORDERED: POTASSIUM CHLORIDE 20MEQ/100ML 100 ML IV ONE (11:30)
[2018-02-13] MEDS ORDERED: SOD CHL 0.45%/POT CHL 20MEQ 1,000 ML IV SCH (13:30)
[2018-02-13] MEDS: GABAPENTIN 300 MG CAP PO SCH (21:03)
[2018-02-14] VITALS (14 sets, daily range): BP systolic 55–147; BP diastolic 37–93
[2018-02-14] MEDS: ALBUTEROL SULFATE HFA 8GM INHALATION AEROSOL INH SCH ×4 (01:30→19:30)
[2018-02-14] MEDS: ALBUTEROL SULF 0.083% NEB SOLN 3 ML NEB NEB SCH ×4 (01:30→19:30)
[2018-02-14] MEDS: HALOPERIDOL LACTATE 5 MG/ML VIAL IV PRN ×2 (02:00→05:08)
[2018-02-14 05:10] LABS: BASOPHILS % 0.3 % (0.0-1.0); EOSINOPHILS # (AUTO) 0.3 (0.0-0.4); EOSINOPHILS % 2.2 % (0.0-6.0); HEMATOCRIT 39.2 % (34.2-44.1); HEMOGLOBIN 11.5 g/dL (12.0-16.0); LYMPHOCYTES # (AUTO) 4.2 (1.0-3.2); LYMPHOCYTES % 30.6 % (18.0-39.1); MEAN CORPUSCULAR HEMOGLOBIN 25.7 pg (28-32); MEAN CORPUSCULAR HGB CONC 29.3 g/dL (31-35); MEAN CORPUSCULAR VOLUME 87.7 fL (81-99); MONOCYTES # (AUTO) 0.9 (0.2-0.8); MONOCYTES % 6.4 % (4.4-11.3); NEUTROPHILS # (AUTO) 8.3 (2.1-6.9); PLATELET COUNT 308 x10e3/uL (140-360); RED BLOOD COUNT 4.47 x10e6/uL (3.6-5.1)
[2018-02-14 05:45] LABS: ALBUMIN 3.1 g/dL (3.5-5.0); ALBUMIN/GLOBULIN RATIO 0.8 (0.8-2.0); CALCIUM 9.7 mg/dL (8.4-10.2); CREATININE, SERUM 1.02 mg/dL (0.57-1.11)
--- NOTE | 2018-02-14 06:32 | Diagnostic Imaging Report ---
CHEST SINGLE (PORTABLE), 02/14/2018 5:57 AM Technique: CHEST SINGLE (PORTABLE) Comparison: 02/09/2018 Clinical history: Fall Findings: Stable cardiac silhouette, bones, soft tissues. Partially imaged left humeral deformity and ORIF. Impression: 1. Lines/Tubes: Removal of ET tube and NG tube. 2. No consolidation or edema. 3. No effusion or pneumothorax. Signed by: Dr Tiffany Clay MD on 02/14/2018 6:29 AM
--- NOTE | 2018-02-14 06:37 | Diagnostic Imaging Report ---
HIP RIGHT 2-3 VW (+/- PELVIS) Comparison: None Clinical history: Fall Findings: No acute hip fracture or dislocation. The joint spaces are relatively preserved. Incompletely visualized moderate to severe lumbosacral degenerative changes. Contrast is noted within the visualized colon. Impression: No acute bony abnormality Signed by: Dr Tiffany Clay MD on 02/14/2018 6:33 AM
[2018-02-14] MEDS: INSULIN LISPRO 100 UNIT/1 ML 3ML VIAL SQ SCH ×4 (06:53→23:46)
[2018-02-14] MEDS: BUDESONIDE/FORMOTEROL 160/4.5MCG INHALER INH SCH ×2 (07:30→19:30)
[2018-02-14] MEDS ORDERED: DEXTROSE 5% 1,000 ML IV ONE (08:45)
[2018-02-14] MEDS ORDERED: FUROSEMIDE INJ 10 MG/ML 4 ML VIAL IV SCH (09:00)
[2018-02-14] MEDS: CEFTRIAXONE SOD 1 GM/NS 50 ML 50 ML IV SCH ×2 (09:50→21:09)
[2018-02-14] MEDS: PANTOPRAZOLE 40 MG 10ML VIAL IV SCH (09:50)
[2018-02-14] MEDS: PAROXETINE HCL 20 MG TAB PO SCH (09:50)
[2018-02-14] MEDS: ASPIRIN 81 MG CHEW TAB NG SCH (09:50)
[2018-02-14] MEDS ORDERED: DIATRIZOATE MEGL/DIATRIZOA SOD 30 ML BTL PO ONE (12:03)
[2018-02-14] MEDS ORDERED: MORPHINE SULFATE INJ 4 MG/ML INJ IV PRN (13:15)
[2018-02-14] MEDS: METOPROLOL TARTRATE INJ 1 MG/ML VIAL IV PRN ×2 (14:29→22:40)
--- NOTE | 2018-02-14 15:04 | Diagnostic Imaging Report ---
EXAMINATION: ABDOMEN-1VIEW (KUB) INDICATION: Query PEG dislodgement. COMPARISON: KUB 02/04/18. FINDINGS: A gastrostomy tube overlies the mid abdomen near the expected location of the distal stomach. No contrast injection was performed. Contrast is seen within the colon. Non-obstructive bowel gas pattern. No acute bony abnormality. IMPRESSION: Gastrostomy tube overlies the mid abdomen near the expected position of the distal stomach, however catheter position cannot be definitively determined in the absence of contrast injection. Signed by: Dr. Nancy Agarwal MD on 02/14/2018 3:00 PM
--- NOTE | 2018-02-14 16:14 | Diagnostic Imaging Report ---
History:Fall Comparison studies: None Technique: Axial images were obtained from the skull base to the vertex. Coronal and sagittal images reconstructed from the axial data. Dose modulation, iterative reconstruction, and/or weight based adjustment of the mA/kV was utilized to reduce the radiation dose to as low as reasonably achievable. Intravenous contrast: None Findings: Scalp/skull: No abnormalities. Extra-axial spaces: No masses. No fluid collections. Brain sulci: Mildly prominent. Ventricles: Mild compensatory dilatation. No hydrocephalus. Parenchyma: Cortical and subcortical hypodensities, centered in the angular gyrus of the left parietal lobe and in the underlying right lateral occipital cortex, the result of an acute nonhemorrhagic vascular insult. No additional abnormal densities. Sellar/suprasellar region: No abnormalities. Craniocervical junction: Patent foramen magnum. No Chiari one malformation. Incidental findings: Subtle atherosclerotic calcifications in the carotid siphons, right vertebral artery and basilar artery. Impression: 1. Focal acute, nonhemorrhagic cortical based right parieto-occipital vascular insult (distal right MCA vascular territory). 2. No additional acute or chronic abnormalities. 3. Apple Mcdowell notified of the findings on 02/14/2018 at 1610 hours. Signed by: Dr. Camilo Hines M.D. on 02/14/2018 4:11 PM
[2018-02-14] MEDS: ATORVASTATIN 10 MG TAB PO SCH (20:49)
[2018-02-14] MEDS: GABAPENTIN 100 MG CAP PO SCH (20:49)
[2018-02-14] MEDS: HEPARIN SOD (PORCINE) 5,000 UNIT/ML VIAL SC SCH (20:51)
[2018-02-14] MEDS ORDERED: GABAPENTIN 300 MG CAP PO SCH (21:00)
[2018-02-15] VITALS (9 sets, daily range): BP systolic 89–112; BP diastolic 54–79
--- NOTE | 2018-02-15 00:02 | Consultation ---
DATE OF CONSULTATION: February 14, 2018 NEUROLOGY CONSULT NOTE HISTORY OF PRESENT ILLNESS: Ms. Austin is a 57-year-old xvda-svad-ptsatxlz woman with past medical history significant for COPD, tobacco use, gastroesophageal reflux disease, and depression, admitted to [facility] on February 04, 2018 with COPD exacerbation and respiratory failure. Over the past 10 days, Ms. Austin has received treatment for COPD exacerbation, possible pneumonia, over the past several days, Ms. Austin has been treated for respiratory failure, COPD, exacerbation, possible pneumonia versus pulmonary edema, non-ST elevated myocardial infarction, and congestive heart failure exacerbation. On the night of February 13, 2018, the patient had a fall when attempting to arise from her hospital bed. The following day, after the admitting physician was made aware of the fall, the CT of the brain without contrast was ordered for further evaluation. The study showed a hypodensity in angular gyrus of the left parietal lobe, as well as the right lateral occipital cortex. A neurology consultation was requested for further evaluation and treatment of new strokes. Ms. Austin does not report a visual field cut or other disturbance, dysarthria, aphasia, facial droop, hemihypesthesia or confusion. The patient does endorse left hemiparesis affecting the arm and leg. The patient has not been out of bed for approximately 10 days. Therefore, she cannot say with certainty whether she has experienced any dizziness, or gait impairment. Ms. Austin is uncertain as to when the symptom of left hemiparesis began. She has not experienced similar symptoms previously. REVIEW OF SYSTEMS: Changes in vision (poor distance vision), fast heartbeat, shortness of breath, nausea, diarrhea, weakness of the left arm and leg. Otherwise, a 12 point review of systems is negative. PAST MEDICAL HISTORY: COPD, GERD, depression. PAST SURGICAL HISTORY: Left rotator cuff repair, PEG tube placement. PAST HOSPITALIZATIONS: Surgeries/procedures as listed, childbirth x3, COPD exacerbation. FAMILY MEDICAL HISTORY: The patient's paternal and maternal grandparents are . Their medical histories are unknown. The patient's father is from COPD. Her mother is from complications of Alzheimer's disease. Ms. Austin had 3 brothers and 3 sisters. One sister is alive. She is a breast cancer survivor. The remaining 2 sisters and 3 brothers are . One brother is as a result of a gunshot wound. The medical histories of the remaining siblings are unknown. Ms. Austin has 3 children, 1 son and 2 daughters. All of her children are alive. One daughter has a seizure disorder. The remaining daughter and son are healthy. SOCIAL HISTORY: Ms. Austin is . She is retired. Per the patient, she quit smoking cigarettes approximately 10 years ago. This is in contradiction to information contained in other notes of the patient's electronic medical record. Ms. Austin reports smoking cigarettes daily for 30+ years. The patient does not report current or prior alcohol or recreational drug use. HOME MEDICATIONS 1. Albuterol sulfate. 2. Symbicort. 3. Gabapentin 300 mg by mouth at bedtime daily. 4. Metoprolol succinate ER 25 mg. 5. Paroxetine 20 mg by mouth daily. 6. Prednisone 20 mg by mouth daily. HOSPITAL MEDICATIONS: Please see the list of hospital medications available for review in the electronic medical records. ALLERGIES: NO KNOWN DRUG ALLERGIES. NO KNOWN FOOD ALLERGIES. NO KNOWN ALLERGIES TO LATEX. NO KNOWN ALLERGIES TO IODINE OR OTHER CONTRAST MATERIALS. PHYSICAL EXAMINATION VITAL SIGNS: Height 64 inches, weight 149 pounds, BMI 25.6 kg per meter squared. Blood pressure 55/37 mmHg, pulse 119 beats per minute. Respiratory rate 18 breaths per minute. Oxygen saturation 97% on 4 L by nasal cannula. GENERAL: The patient is awake and alert, does not appear distressed. Ms. Austin appears older than her stated age. HEENT: Normocephalic, atraumatic. Pupils are unequal, round, and reactive to light. Moist mucous membranes. NECK: Supple. No appreciable thyromegaly. No appreciable carotid bruits. CARDIOVASCULAR: S1, S2, tachycardic, regular rhythm. No murmurs, rubs or gallops. RESPIRATORY: Clear to auscultation bilaterally. No wheezes, rhonchi or rales. EXTREMITIES: The skin is warm and dry. No clubbing, cyanosis or edema. The posterior tibial and dorsalis pedis pulses are 1+ and symmetric. SKIN: No rashes or lesions. NEUROLOGIC Memory/Attention: The patient is awake and alert. Oriented to person, place, time, and situation. Cranial Nerves: Cranial nerve I--not tested. Cranial nerve II, III, IV, and --pupils are unequal and round, react briskly to light (from 6 mm to 4 mm on the right and from 4 mm to 2 mm on the left). Extraocular movements intact. No nystagmus. Visual kwong are full to confrontation. Cranial nerve V--sensation to light touch and pinprick is intact in the bilateral V1 through V3 distributions. Strength of the temporalis and masseter muscles is within normal limits. Cranial nerve VII--the face is symmetric as are all facial movements. Strength is within normal limits. Cranial nerve VIII-- hearing is intact to finger rub bilaterally. Cranial nerve IX, X--the soft palate elevates equally and symmetrically. Cranial nerve XI--normal strength of the bilateral sternocleidomastoid and trapezius muscles. Cranial nerve XII--the tongue protrudes midline and moves symmetrically from side to side. Strength: Bulk is diminished throughout. Ms. Austin is able to maintain both arms against gravity for more than 10 seconds each without drift. She is able to maintain both legs against gravity for more than 5 seconds each without drift. Tone is normal. DTRs: Deep tendon reflexes are 1+ and symmetric at the triceps, biceps, brachioradialis. Deep tendon reflexes are absent and symmetric at the patellas and Achilles. Plantar responses are flexor bilaterally. Sensation: Sensation is decreased to light touch and pinprick over the left arm and left leg. Sensation is intact to light touch and pinprick over the right arm and right leg. Cerebellar: There is dysmetria with bilateral ujcgkh-osyg-frklcw maneuvers. Evaluation of bilateral heel-nolasco maneuvers is deferred. Gait: Gait deferred. Speech: Spontaneous speech is mildly dysarthric without aphasia. Repetition is intact. Hypophonic. Involuntary Movements: None. Pronator Drift: None. LABORATORY DATA: The patient's most recent comprehensive metabolic panel reveals a sodium of 151, carbon dioxide of 30, anion gap of 18.0, BUN of 34, estimated GFR 55, BUN to creatinine ratio 33, serum glucose of 203, albumin of 3.1, globulin of 3.8. The patient's serum glucoses have ranged from 116 to 254 over the past 24 hours. Hemoglobin A1c is 6.8. A cholesterol panel collected on February 04, 2018 revealed a total cholesterol 133, triglycerides of 102, LDL cholesterol of 84, and HDL cholesterol of 29. The CBC with differential and platelets reveals a white blood cell count 13.84 with a normal differential. The hemoglobin and hematocrit are 11.5 and 39.2, respectively. The platelet count is 308,000. Coagulation profile drawn on February 12, 2018 revealed a PT of 14.8, INR of 1.06, and PTT of 27.5. Blood cultures from February 04, 2018 grew Staphylococcus epidermidis. One blood culture grew Streptococcus pneumoniae. A urine culture collected on February 04, 2018 grew mixed albino. A sputum culture collected on February 13, 2018 grew Streptococcus pneumoniae. DIAGNOSTIC STUDIES 1. Electrocardiogram 02/04/2018: Normal sinus rhythm at 92 beats per minute. 2. Chest x-ray 02/04/2018: Limited examination secondary to patient positioning as described above. Pulmonary venous congestion. 3. Chest x-ray 02/04/2018: New endotracheal tube, in adequate position. Worsening bilateral interstitial edema. 4. Abdomen x-ray 02/04/2018: Nasogastric tube side hole projects over the gastroesophageal junction. Tip projects over the gastric body. Nonobstructive bowel gas pattern. 5. Chest ultrasound 02/04/2018: No pleural effusions. 6. Abdomen ultrasound 02/05/2018: 1. Suboptimal exam secondary to positioning. 2. Mild splenomegaly. 3. Trace gallbladder sludge. 4. Chest x-ray 02/05/2018: Slight increase in interstitial edema. 5. Echocardiogram 02/05/2018: Ejection fraction 55% to 60%. Trace mitral regurgitation. Mild tricuspid regurgitation. Pleural effusion. 6. Chest x-ray 02/06/2018: Central vascular congestion is again noted. However, no evidence of airspace disease to suggest pneumonia. 7. Chest x-ray 02/08/2018 1. Lines/tubes: Stable ET tube. NG tube is poorly visualized distally. 2. Stable central interstitial prominence. No consolidation. 3. No effusion or pneumothorax. 4. Chest x-ray 02/09/2018: 1. Line/tubes: Stable ET tube 4.5 cm above the rebekah and subdiaphragmatic NG tube. 2. Increased central interstitial vascular prominence. No consolidation. 3. No effusion or pneumothorax. 4. Modified barium swallow 02/11/2018: Moderate oral and severe pharyngeal dysphagia with silent inconsistent aspiration of thin, nectar, and honey thick liquids. 5. Hip x-ray 02/14/2018: No acute bony abnormality. 6. Chest x-ray 02/14/2018 1. Lines/tubes: Removal of ET tube and NG tube. 2. No consolidation or edema. 3. No effusion or pneumothorax. 4. Abdomen x-ray 02/15/2008: Gastrostomy tube overlies the midabdomen near the expected position of the distal stomach. However, catheter position cannot be definitively determined in the absence of contrast injection. 5. CT of the brain without contrast 02/14/2018: Cortical and subcortical hypodensities are noted centered in the angular gyrus of the left parietal lobe and in the underlying right lateral occipital cortex. There is diffuse cerebral atrophy with mild compensatory dilatation of the ventricles, more than expected for age. There are findings compatible with itgv-uw-twdzigtf chronic small vessel ischemic disease. ASSESSMENT AND PLAN: Ms. Austin is a 57-year-old ywzb-mmwa-ycyrkhng woman with past medical history as documented in the midst of a prolonged hospitalization and found to have bilateral ischemic strokes in different vascular distributions, suggestive of embolic phenomena. The patient has undergone a thorough neurological examination with findings detailed above. Ms. Austin's laboratory data and other diagnostic studies have been reviewed and are documented above. RECOMMENDATIONS 1. Bilateral carotid artery ultrasound with Doppler will be ordered. A transesophageal echocardiogram will be ordered to evaluate for clot in the atrial appendage or aortic atheroma. 2. A hemoglobin A1c will be ordered. 3. Continue treatment with aspirin, but increase the dose to 325 mg by mouth daily for stroke prophylaxis. 4. Ms. Austin is hypotensive. Continue intravenous fluids to support the patient's blood pressure. 5. The patient's total cholesterol is 133. Her LDL is 84, which is slightly above the recommended goal of 70. Continue treatment with a low-dose statin (atorvastatin 10 mg by mouth at bedtime daily) to achieve lipid goals and for stroke prophylaxis. 6. Follow up the results of the hemoglobin A1c. Continue monitoring fingerstick blood glucoses, and treating with sliding scale insulin as per protocol. 7. Physical and speech therapy are following the patient. 8. GI prophylaxis with Protonix. DVT prophylaxis with heparin. 9. Defer treatment of the remaining medical comorbidities to the primary and other services following the patient. Thank you for this consultation. I will continue to follow the patient while she remains in the hospital. TIME SPENT: 70 minutes. Job#: [id number] CQ [id number]
[2018-02-15] MEDS: ALBUTEROL SULFATE HFA 8GM INHALATION AEROSOL INH SCH ×4 (01:15→18:00)
[2018-02-15] MEDS: ALBUTEROL SULF 0.083% NEB SOLN 3 ML NEB NEB SCH ×4 (01:15→19:00)
[2018-02-15] MEDS ORDERED: DIATRIZOATE MEGL/DIATRIZOA SOD 30 ML BTL PO ONE (04:45)
[2018-02-15] MEDS ORDERED: ONDANSETRON HCL INJ 2 MG/ML VIAL IV STA (04:52)
[2018-02-15] MEDS ORDERED: ONDANSETRON HCL INJ 2 MG/ML VIAL IV PRN (05:00)
[2018-02-15 05:51] LABS: BASOPHILS % 0.2 % (0.0-1.0); HEMATOCRIT 46.6 % (34.2-44.1); LYMPHOCYTES # (AUTO) 1.4 (1.0-3.2); MEAN CORPUSCULAR HEMOGLOBIN 25.8 pg (28-32); MONOCYTES # (AUTO) 0.4 (0.2-0.8); MONOCYTES % 5.1 % (4.4-11.3); NEUTROPHILS # (AUTO) 6.7 (2.1-6.9); NEUTROPHILS % 77.9 % (38.7-80.0); PLATELET COUNT 331 x10e3/uL (140-360); RED BLOOD COUNT 5.42 x10e6/uL (3.6-5.1); RED CELL DISTRIBUTION WIDTH 20.2 % (11.7-14.4)
[2018-02-15] MEDS: INSULIN LISPRO 100 UNIT/1 ML 3ML VIAL SQ SCH ×3 (06:00→17:37)
[2018-02-15 06:01] LABS: ALBUMIN 2.6 g/dL (3.5-5.0); ALBUMIN/GLOBULIN RATIO 0.7 (0.8-2.0); CALCIUM 10.5 mg/dL (8.4-10.2); CREATININE, SERUM 2.47 mg/dL (0.57-1.11)
[2018-02-15] MEDS: BUDESONIDE/FORMOTEROL 160/4.5MCG INHALER INH SCH ×2 (06:30→20:20)
[2018-02-15] MEDS: ASPIRIN 81 MG CHEW TAB NG SCH (08:34)
[2018-02-15] MEDS: PAROXETINE HCL 20 MG TAB PO SCH (08:35)
[2018-02-15] MEDS: PANTOPRAZOLE 40 MG 10ML VIAL IV SCH (08:52)
[2018-02-15] MEDS: HEPARIN SOD (PORCINE) 5,000 UNIT/ML VIAL SC SCH ×2 (08:54→22:20)
[2018-02-15] MEDS ORDERED: NICOTINE 21 MG/EA PATCH TOP SCH (09:00)
[2018-02-15] MEDS: CEFTRIAXONE SOD 1 GM/NS 50 ML 50 ML IV SCH ×2 (09:53→22:07)
--- NOTE | 2018-02-15 11:02 | Diagnostic Imaging Report ---
PROCEDURE:X-RAY ABDOMEN - KUB COMPARISON:Patients [facility], DX, MODIFIED BA. SWALLOW, 02/12/2018, 0:05. [facility], DX, ABDOMEN-1VIEW (KUB), 02/14/2018, 12:58. INDICATIONS:PEG TUBE PLACEMENT CHECK FINDINGS: Contrast outlines the colon which is residua from a prior modified barium swallow. The G-tube has been injected with positive contrast material. There is some contrast within the stomach and some contrast that likely has spilled on to the skin or fascial layers. Repeat contrast injection under fluoroscopy to confirm luminal location of the G-tube would be of benefit. There is no evidence of free air. No acute osseous abnormalities are present. CONCLUSION: G-tube as described above. Catrachito Awan D.O. Dictated by: Catrachito Awan D.O. on 02/15/2018 at 11:11 Electronically approved by: Catrachito Awan D.O. on 02/15/2018 at 11:11
[2018-02-15] MEDS ORDERED: NEOMYCIN/POLYMYX/BACITR OINT 0.9 GM PKT ONE (15:54)
--- NOTE | 2018-02-15 16:43 | Operative Report ---
DATE OF PROCEDURE: February 15, 2018 PROCEDURE PERFORMED: Esophagogastroduodenoscopy with percutaneous endoscopic gastrostomy tube placement. INDICATIONS FOR PROCEDURE: Patient is gastrostomy tube dependent. Patient with dysphagia, gastrostomy dependent, gastrostomy tube was dislodged. In for EGD and PEG tube replacement. MEDICATION: Patient was done under MAC. Please see anesthesiologist's note. PROCEDURE: With the patient in the supine position, the flexible fiberoptic Olympus gastroscope was introduced into the esophagus under direct visualization without any difficulty. The scope was then advanced with ease into the stomach traversing a large hiatal hernia. The bumper of the previous G-tube could not be localized in the stomach, and appears to have migrated or dislodged into the gastrocutaneous fistula. The pylorus was intubated with ease. The scope was advanced into the 2nd portion of the duodenum. The mucosa overlying the proximal 2nd portion appeared to be within normal limits. There appears to be a moderate size diverticulum at the junction of the duodenal bulb and the 2nd portion. The scope was then withdrawn back into the stomach, and the old PEG tube was then removed per the pull traction method. An attempt to reinsert a new tube through the old G-tube stoma was unsuccessful. A new incision was then carried out just distal to the previous G-tube stoma, and a new PEG tube was placed in the usual fashion. The scope was subsequently withdrawn after documenting a good positioning of the enterogastric bumper. The patient tolerated the procedure well. IMPRESSION 1. Distal esophagitis. 2. Large hiatal hernia. 3. Gastritis. 4. Bumper of old gastrostomy tube was not in the stomach and appeared to have been dislodged or migrated into the gastrocutaneous fistula. It was removed per the pull traction method. A new gastrostomy tube could not be inserted through the old gastrostomy tube stoma. Percutaneous endoscopic gastrostomy tube insertion was then carried out through a new incision just distal to the old gastrostomy tube stoma. The scope was subsequently withdrawn after documenting a good positioning of the enterogastric bumper. Patient tolerated the procedure well. Gastrostomy tube to drain to gravity in a Ramires bag times 24 hours then can use. An abdominal binder has to be applied to the abdomen for the next several days. The patient might have to be restrained if she attempts to pull or tug on the tube. Job#: [id number] RI cc:PAULA LARA MD
[2018-02-15] MEDS ORDERED: PROPOFOL IV EMULSION 10 MG/ML 50 ML VIAL ONE (17:01)
[2018-02-15] MEDS ORDERED: KETAMINE HCL INJ 50 MG/ML 10 ML VIAL ONE (17:08)
--- NOTE | 2018-02-15 19:09 | Diagnostic Imaging Report ---
Ventilation/perfusion lung scan Clinical Information: Acute respiratory failure Comparison: Chest radiograph 02/14/2018 Discussion: Xenon-133 gas 11 mCi was administered via inhalation. Dynamic images of the lungs in the posterior projection were obtained through single breath, equilibrium, and washout phases. Distribution of tracer activity is very irregular throughout the lungs. There are no segmental ventilatory defects. Washout of tracer is diffusely delayed with marked diffuse air trapping. Perfusion images of the lungs were obtained in multiple projections following intravenous administration of approximately 5.5 mCi of Tc-99m MAA. Distribution of tracer is very irregular throughout the lungs. The contours of the lungs are well demarcated. There are no segmental perfusion defects of any size. The cardiomediastinal silhouette is unremarkable. Impression: Scan findings represent a LOW probability for acute pulmonary embolic disease based on the PIOPED II criteria. Scan evidence of severe obstructive lung disease. Signed by: Dr. Nilda Flowers M.D. on 02/15/2018 7:05 PM
[2018-02-15] MEDS: GABAPENTIN 100 MG CAP PO SCH (21:00)
[2018-02-15] MEDS: ATORVASTATIN 10 MG TAB PO SCH (21:00)
[2018-02-15] MEDS: METOPROLOL TARTRATE INJ 1 MG/ML VIAL IV PRN (21:39)
[2018-02-16] VITALS (9 sets, daily range): BP systolic 11–153; BP diastolic 61–77
[2018-02-16] MEDS: INSULIN LISPRO 100 UNIT/1 ML 3ML VIAL SQ SCH ×4 (00:36→18:00)
[2018-02-16] MEDS: METOPROLOL TARTRATE INJ 1 MG/ML VIAL IV PRN (03:18)
[2018-02-16] MEDS ORDERED: DIGOXIN INJ 0.25 MG/ML 2 ML AMP IV STA (03:46)
[2018-02-16] MEDS ORDERED: AMIODARONE HCL 150 MG/100 ML BAG IV ONE (04:00)
[2018-02-16] MEDS ORDERED: AMIODARONE HCL 100 ML IV ONE (04:03)
[2018-02-16] MEDS ORDERED: AMIODARONE 900MG 500 ML IV ONE (04:03)
[2018-02-16] MEDS: AMIODARONE HCL 900 MG in DEXTROSE 5% 500ML 500 ML IV SCH (04:22)
[2018-02-16] MEDS ORDERED: AMIODARONE HCL 900 MG in DEXTROSE 5% 500ML 500 ML IV SCH (04:30)
[2018-02-16 05:02] LABS: EOSINOPHILS % 0.2 % (0.0-6.0); HEMATOCRIT 39.5 % (34.2-44.1); HEMOGLOBIN 11.8 g/dL (12.0-16.0); LYMPHOCYTES # (AUTO) 0.6 (1.0-3.2); LYMPHOCYTES % 6.6 % (18.0-39.1); MEAN CORPUSCULAR HGB CONC 29.9 g/dL (31-35); MONOCYTES # (AUTO) 0.3 (0.2-0.8); MONOCYTES % 3.1 % (4.4-11.3); NEUTROPHILS # (AUTO) 7.8 (2.1-6.9); NEUTROPHILS % 89.6 % (38.7-80.0); PLATELET COUNT 202 x10e3/uL (140-360); RED BLOOD COUNT 4.54 x10e6/uL (3.6-5.1); RED CELL DISTRIBUTION WIDTH 19.9 % (11.7-14.4)
[2018-02-16 05:24] LABS: ALBUMIN/GLOBULIN RATIO 0.5 (0.8-2.0); ANION GAP 18.9 mmol/L (8-16); CALCIUM 10.9 mg/dL (8.4-10.2); CREATININE, SERUM 3.54 mg/dL (0.57-1.11); POTASSIUM 5.9 mmol/L (3.5-5.1)
[2018-02-16] MEDS: ALBUTEROL SULFATE HFA 8GM INHALATION AEROSOL INH SCH ×4 (06:00→18:00)
[2018-02-16] MEDS: BUDESONIDE/FORMOTEROL 160/4.5MCG INHALER INH SCH ×2 (07:00→19:47)
[2018-02-16] MEDS: ALBUTEROL SULF 0.083% NEB SOLN 3 ML NEB NEB SCH ×4 (07:00→19:47)
[2018-02-16] MEDS ORDERED: BENZOCAINE 20% SPR 60 ML CAN ONE (07:33)
[2018-02-16] MEDS ORDERED: SODIUM CHLORIDE 0.9% 1000ML 1,000 ML ONE (07:34)
[2018-02-16] MEDS: PAROXETINE HCL 20 MG TAB PO SCH (08:00)
[2018-02-16] MEDS: ASPIRIN 81 MG CHEW TAB NG SCH (08:00)
[2018-02-16] MEDS: PANTOPRAZOLE 40 MG 10ML VIAL IV SCH (08:00)
[2018-02-16] MEDS: HEPARIN SOD (PORCINE) 5,000 UNIT/ML VIAL SC SCH (08:41)
[2018-02-16] MEDS ORDERED: ENOXAPARIN SODIUM INJ 100 MG/ML SYR SC SCH (08:45)
[2018-02-16 09:32] LABS: BAND NEUTROPHILS % (MANUAL) 5 %; LYMPHOCYTES % (MANUAL) 11 % (19-48); MONOCYTES % (MANUAL) 3 % (3.4-9.0); NEUTROPHILS % (MANUAL) 81 % (40-74)
[2018-02-16 09:33] LABS: PLATELET ESTIMATE ADEQUATE; PLATELET MORPHOLOGY COMMENT NORMAL; RBC MORPHOLOGY COMMENT NORMAL
[2018-02-16] MEDS: NICOTINE 14 MG/EA PATCH TOP SCH (10:18)
[2018-02-16] MEDS ORDERED: SOD POLYSTYRENE SULFONATE SUSP 15 GM/60 ML BTL PO NR (10:30)
[2018-02-16 11:18] LABS: ANION GAP 16.5 mmol/L (8-16); CALCIUM 10.1 mg/dL (8.4-10.2); CREATININE, SERUM 2.83 mg/dL (0.57-1.11); POTASSIUM 4.5 mmol/L (3.5-5.1)
[2018-02-16] MEDS ORDERED: HUMAN IV ONE ×3 (11:30)
[2018-02-16] MEDS ORDERED: INSULIN REGULAR IV ONE ×3 (11:30)
[2018-02-16] MEDS ORDERED: [UNRECOGNIZED DRUG - OTHER] IV ONE ×3 (11:30)
[2018-02-16] MEDS ORDERED: SODIUM BICARBONATE IV ONE ×3 (11:30)
--- NOTE | 2018-02-16 12:12 | Diagnostic Imaging Report ---
EXAMINATION: Renal ultrasound. CLINICAL HISTORY :Acute kidney injury COMPARISON: Abdominal ultrasound 02/06/2020 TECHNIQUE: Grayscale and color Doppler evaluation of the kidneys and bladder was performed in transverse and longitudinal planes. DISCUSSION: RIGHT KIDNEY: The right kidney measures 8.2 cm in length and shows normal renal cortical echogenicity. No hydronephrosis, shadowing calculi or solid mass lesions. LEFT KIDNEY: The left kidney measures 9.3 cm in length and shows normal renal cortical echogenicity. No hydronephrosis, shadowing calculi or solid mass lesions. BLADDER: Collapsed around a Ramires catheter. IMPRESSION: Unremarkable sonographic appearance of the kidneys. Signed by: Dr. Margarito Cota M.D. on 02/16/2018 12:09 PM
--- NOTE | 2018-02-16 14:36 | Consultation ---
DATE OF CONSULTATION: February 16, 2018 NEPHROLOGY CONSULTATION REQUESTING PHYSICIAN: Dr. Abilio Bansal. REASON FOR CONSULTATION: Acute kidney injury. HISTORY OF PRESENT ILLNESS: This is a 57-year-old female who recently was intubated with respiratory failure, hypercapnia, COPD with exacerbation and pulmonary edema. She has been diuresed. During this time it was found that the creatinine was around 1 mg percent, has steadily increased. She was also found to have bilateral ischemic strokes, possibly emboli. She recently was cardioverted for atrial fibrillation. Also had a history of aspiration. Fluid overload is now better on chest x-ray yesterday. During evaluation it was noted that she has been net negative. Creatinine, which was 1.21 mg percent at admission went up to 3.54. Diuretics have been backed off. Vancomycin level was never that high. I do not see any NSAIDs on her JUN. She was getting IV Lasix, however, and she was getting cefepime and azithromycin. She was also found to have a potassium of 5.9, serum CO2 of 30. Briefly to temporize this she has been placed on D10 with insulin and some bicarbonate, which we plan to stop. PAST HISTORY: COPD, recent respiratory failure, multiple strokes, atrial fibrillation, type 2 diabetes, baseline creatinine 0.1 to 1.2 mg percent. Of note, she also had a cardiac cath on the , which was about 8 to 9 days ago. She also had an LV-gram. FAMILY HISTORY: No kidney problems. SOCIAL HISTORY: Continues to smoke, now on nicotine patch. medication pls see list REVIEW OF SYSTEMS CONSTITUTIONAL: Feels weak. RESPIRATORY: Chronic dyspnea. CARDIAC: No palpitations. GI: Got PEG tube. MUSCULOSKELETAL: Weakness in the limbs. HEENT: Hoarse voice after intubate. PHYSICAL EXAMINATION GENERAL: Lying in bed. Appears frail. No distress. VITAL SIGNS: Temperature 97.8. Pulse is now down to 98 at rest. Blood pressure 101/72. HEENT: Atraumatic. NECK: Neck veins are flat. CHEST: Clear. Diminished breath sounds bilaterally. CARDIAC: Normal heart tones. It does sound regular now. EXTREMITIES: No definite edema. SKIN: Dry. NEUROLOGIC: Alert, appropriate. Speech is difficult to understand but appears appropriate for the most part. LABS: As noted, potassium was 5.9. It is coming down to 4.5. UA earlier showed evidence of a few bacteria and RBCs. Repeat is pending. Serum CO2 is 30. Part of this may be compensation. pCO2 at one point was as high as 70, which can cause renal vasoconstriction. Hemoglobin is 11.8, white count 8.74, platelets 202. ASSESSMENT: Acute kidney injury, most likely acute tubular necrosis given her respiratory failure and a presumed pulmonary infection. Additionally, she may have gotten too much diuretics in an effort to clear her lungs and the renal function may have responded to that. It is a bit late for contrast nephropathy but not unheard of given that the creatinine started rising on February 15 and IV contrast was given on February 07. Interstitial nephritis needs to be considered as well as obstruction. PLAN: Get renal ultrasound. Get UA. Get urine eosinophils. Limited IV fluids including D10 and dextrose will be given. The potassium, now that it is coming down, we can change that to normal saline at 50 mL an hour for 500 mL. Renal function already seems to be improving. Avoid nephrotoxins such as NSAIDs. Ultrasound report is pending. Recheck a potassium this p.m. Will follow along. Sincerely, Job#: [id number] EV MILES
--- NOTE | 2018-02-16 16:23 | Operative Report ---
DATE OF PROCEDURE: February 16, 2018 PROCEDURE PERFORMED: Synchronized cardioversion. INDICATION: Atrial fibrillation. DESCRIPTION OF PROCEDURE: After informed consent, the patient underwent a transesophageal echocardiogram. She had no thrombus noted. The patient underwent synchronized cardioversion at 75 joules. The patient converted to sinus rhythm. A few minutes later, the patient went back into atrial fibrillation and was again shocked at 75 joules. Patient converted to sinus rhythm. Patient tolerated the procedure without any complications. Patient was anesthetized by the anesthesiologist. Job#: [id number]
[2018-02-16] MEDS ORDERED: PROPOFOL IV EMULSION 10 MG/ML 20 ML VIAL ONE (18:00)
[2018-02-16] MEDS ORDERED: LIDOCAINE HCL 2% LOCAL INJ 5 ML SDV VIAL INJ ONE (18:00)
[2018-02-16] MEDS ORDERED: KETAMINE HCL INJ 50 MG/ML 10 ML VIAL ONE (18:19)
[2018-02-16] MEDS: ATORVASTATIN 10 MG TAB PO SCH (21:55)
[2018-02-16] MEDS: GABAPENTIN 100 MG CAP PO SCH (21:55)
[2018-02-17] VITALS (9 sets, daily range): BP systolic 106–123; BP diastolic 56–82
[2018-02-17] MEDS: AMIODARONE HCL 900 MG in DEXTROSE 5% 500ML 500 ML IV SCH (00:27)
[2018-02-17] MEDS: INSULIN LISPRO 100 UNIT/1 ML 3ML VIAL SQ SCH ×4 (00:35→18:00)
[2018-02-17] MEDS: ALBUTEROL SULF 0.083% NEB SOLN 3 ML NEB NEB SCH ×4 (02:00→19:00)
[2018-02-17 05:25] LABS: BASOPHILS % 0.8 % (0.0-1.0); EOSINOPHILS # (AUTO) 0.3 (0.0-0.4); EOSINOPHILS % 5.8 % (0.0-6.0); HEMATOCRIT 32.2 % (34.2-44.1); HEMOGLOBIN 9.7 g/dL (12.0-16.0); LYMPHOCYTES # (AUTO) 0.6 (1.0-3.2); MEAN CORPUSCULAR HEMOGLOBIN 25.7 pg (28-32); MEAN CORPUSCULAR HGB CONC 30.1 g/dL (31-35); MEAN CORPUSCULAR VOLUME 85.2 fL (81-99); MONOCYTES # (AUTO) 0.2 (0.2-0.8); MONOCYTES % 4.4 % (4.4-11.3); NEUTROPHILS # (AUTO) 3.9 (2.1-6.9); NEUTROPHILS % 77.6 % (38.7-80.0); PLATELET COUNT 168 x10e3/uL (140-360); RED BLOOD COUNT 3.78 x10e6/uL (3.6-5.1); RED CELL DISTRIBUTION WIDTH 19.3 % (11.7-14.4)
[2018-02-17 05:41] LABS: ALBUMIN 1.7 g/dL (3.5-5.0); ALBUMIN/GLOBULIN RATIO 0.4 (0.8-2.0); CALCIUM 9.4 mg/dL (8.4-10.2); CREATININE, SERUM 1.8 mg/dL (0.57-1.11)
[2018-02-17] MEDS: ALBUTEROL SULFATE HFA 8GM INHALATION AEROSOL INH SCH ×4 (06:00→18:00)
[2018-02-17 06:01] LABS: PHOSPHORUS 3.4 MG/DL (2.3-4.7)
[2018-02-17] MEDS ORDERED: POTASSIUM CHLORIDE 20MEQ/15ML UDC NG ONE (06:15)
[2018-02-17] MEDS: BUDESONIDE/FORMOTEROL 160/4.5MCG INHALER INH SCH ×2 (06:30→18:30)
[2018-02-17 07:35] LABS: BAND NEUTROPHILS % (MANUAL) 4 %; EOSINOPHILS % (MANUAL) 6 % (0-7); LYMPHOCYTES % (MANUAL) 9 % (19-48); MONOCYTES % (MANUAL) 1 % (3.4-9.0); NEUTROPHILS % (MANUAL) 80 % (40-74); PLATELET ESTIMATE ADEQUATE; PLATELET MORPHOLOGY COMMENT NORMAL; RBC MORPHOLOGY COMMENT NORMAL
[2018-02-17] MEDS ORDERED: POTASSIUM CHLORIDE 20 MEQ TAB CR PO STA (08:06)
[2018-02-17] MEDS: ENOXAPARIN INJ 80 MG/0.8 ML SYR SC SCH (08:59)
[2018-02-17] MEDS: ASPIRIN 81 MG CHEW TAB NG SCH (08:59)
[2018-02-17] MEDS: PANTOPRAZOLE 40 MG 10ML VIAL IV SCH (08:59)
[2018-02-17] MEDS: PAROXETINE HCL 20 MG TAB PO SCH (08:59)
[2018-02-17] MEDS: AMIODARONE HCL 200 MG TAB PO SCH (08:59)
[2018-02-17] MEDS ORDERED: NICOTINE 14 MG/EA PATCH TOP SCH (09:00)
[2018-02-17] MEDS ORDERED: NICOTINE 21 MG/EA PATCH TOP SCH (09:00)
[2018-02-17] MEDS: NICOTINE 14 MG/EA PATCH TOP SCH (09:00)
[2018-02-17 16:18] LABS: ANION GAP 17.3 mmol/L (8-16); CALCIUM 9.3 mg/dL (8.4-10.2); CREATININE, SERUM 1.4 mg/dL (0.57-1.11); POTASSIUM 4.3 mmol/L (3.5-5.1)
[2018-02-17] MEDS ORDERED: MORPHINE SULFATE 2 MG/ML SYR IV PRN (16:45)
[2018-02-17] MEDS: GABAPENTIN 100 MG CAP PO SCH (22:33)
[2018-02-17] MEDS: ATORVASTATIN 10 MG TAB PO SCH (22:37)
[2018-02-18] VITALS: BP 123/69
[2018-02-18] MEDS: INSULIN LISPRO 100 UNIT/1 ML 3ML VIAL SQ SCH ×3 (00:27→12:18)
[2018-02-18] MEDS: ALBUTEROL SULF 0.083% NEB SOLN 3 ML NEB NEB SCH ×3 (02:00→13:38)
[2018-02-18 04:00] VITALS: BP 100/68
[2018-02-18 04:47] LABS: BASOPHILS % 0.6 % (0.0-1.0); EOSINOPHILS # (AUTO) 0.4 (0.0-0.4); EOSINOPHILS % 8.2 % (0.0-6.0); HEMOGLOBIN 9.4 g/dL (12.0-16.0); LYMPHOCYTES # (AUTO) 0.6 (1.0-3.2); LYMPHOCYTES % 12.3 % (18.0-39.1); MEAN CORPUSCULAR HEMOGLOBIN 26.2 pg (28-32); MEAN CORPUSCULAR HGB CONC 30.3 g/dL (31-35); MEAN CORPUSCULAR VOLUME 86.4 fL (81-99); MONOCYTES # (AUTO) 0.3 (0.2-0.8); MONOCYTES % 6.3 % (4.4-11.3); NEUTROPHILS # (AUTO) 3.6 (2.1-6.9); NEUTROPHILS % 70.8 % (38.7-80.0); PLATELET COUNT 139 x10e3/uL (140-360); RED BLOOD COUNT 3.59 x10e6/uL (3.6-5.1); RED CELL DISTRIBUTION WIDTH 18.9 % (11.7-14.4)
[2018-02-18 05:10] LABS: ALBUMIN 1.6 g/dL (3.5-5.0); ALBUMIN/GLOBULIN RATIO 0.4 (0.8-2.0); ANION GAP 12.4 mmol/L (8-16); CALCIUM 9.1 mg/dL (8.4-10.2); CREATININE, SERUM 1.2 mg/dL (0.57-1.11); POTASSIUM 3.4 mmol/L (3.5-5.1)
[2018-02-18] MEDS: ALBUTEROL SULFATE HFA 8GM INHALATION AEROSOL INH SCH ×3 (06:00→12:00)
[2018-02-18] MEDS: BUDESONIDE/FORMOTEROL 160/4.5MCG INHALER INH SCH (07:00)
[2018-02-18 07:02] LABS: BAND NEUTROPHILS % (MANUAL) 4 %; EOSINOPHILS % (MANUAL) 2 % (0-7); LYMPHOCYTES % (MANUAL) 10 % (19-48); MONOCYTES % (MANUAL) 3 % (3.4-9.0); NEUTROPHILS % (MANUAL) 81 % (40-74)
[2018-02-18 08:04] VITALS: BP 107/46
[2018-02-18] MEDS ORDERED: POTASSIUM CHLORIDE 20 MEQ TAB CR PO NR (08:07)
[2018-02-18] MEDS ORDERED: POTASSIUM CHLORIDE 20MEQ/15ML UDC PEG NR (08:45)
[2018-02-18] MEDS: PAROXETINE HCL 20 MG TAB PO SCH (08:54)
[2018-02-18] MEDS: PANTOPRAZOLE 40 MG 10ML VIAL IV SCH (08:54)
[2018-02-18] MEDS: AMIODARONE HCL 200 MG TAB PO SCH (08:54)
[2018-02-18] MEDS: NICOTINE 14 MG/EA PATCH TOP SCH (08:54)
[2018-02-18 08:55] VITALS: BP 107/46
[2018-02-18] MEDS ORDERED: ASPIRIN 81 MG CHEW TAB NG SCH (09:00)
[2018-02-18] MEDS: ENOXAPARIN INJ 80 MG/0.8 ML SYR SC SCH (09:00)
[2018-02-18] MEDS ORDERED: CEFTRIAXONE SOD 1 GM VIAL IV SCH (10:30)
[2018-02-18 15:00] VITALS: BP 110/72
[2018-02-18] MEDS ORDERED: APIXABAN 5 MG TABLET PO SCH (15:00)
--- NOTE | 2018-02-18 16:45 | Discharge Summary ---
TRANSFER SUMMARY She is a 57-year-old female patient of mine, presented in respiratory distress with severe shortness of breath. ADMITTING IMPRESSIONS/DIAGNOSES 1. Acute respiratory failure with chronic obstructive pulmonary disease exacerbation, congestive heart failure, pulmonary edema and community-acquired pneumonia. 2. Bhm-QN-aojqndgym myocardial infarction. HOSPITAL COURSE SUMMARY: Patient was admitted with the above diagnoses in the intensive care unit. Patient was treated aggressively with the ventilator, nebulizer, and IV antibiotics vancomycin and cefepime, and beta gloria was given. Echocardiogram had no systolic LV dysfunction, but patient had diastolic dysfunction. A pulmonary consultation was done by Dr. Mckeon and Dr. Lockett. Patient had blood cultures done with gram-positive cocci in the blood. Patient also had Strep pneumoniae. Patient had a prolonged course on the ventilator. Patient had undergone heart catheterization. Patient's heart cath was negative for any significant coronary artery disease. Patient did not have any significant stenosis in the coronary arteries. Patient was successfully extubated, and post extubation patient was tried to have a bedside swallow eval and patient had failed; so, MBS was done and patient was required to have a PEG tube for feeding. While recovering, patient had AFib with rapid rate and patient had an acute stroke. A neurology consultation was done, and stat CT scan of the head was done. Patient was given amiodarone and anticoagulation with Lovenox. Patient had acute right parieto-occipital CVA. Patient had a V/Q scan done, which was low probability. HANNAH was performed, and patient was found to have a PFO. An LTAC evaluation is in the process. Patient had acute confusion while she was having her stroke; so, patient had one-on-one observation being done. Patient was treated with IV amiodarone for the AFib, and patient was also getting anticoagulation with Lovenox. Patient had also developed renal failure; so, nephrology consult was done. With the IV fluids his creatinine had jumped up to 3, which got better, now is 1.20. Now upon stabilization patient will be transferred to long-term acute care hospital at [facility] for continuous care with continuous IV antibiotic for pneumonia, monitoring for AFib and CVA and PFO, and patient has severe COPD and very borderline condition and she is at high risk of reintubation. She had a vocal cord dysfunction; so, she is also at high risk of aspiration. So, she will need continuous speech therapy, occupational therapy, and patient will need continuous monitoring by the whole care team. PAULA LARA MD Job#: [id number] EV
--- NOTE | 2018-02-19 12:49 | Cardiology Report ---
PLEASE VERIFY ORDER NUMBER TRANSESOPHAGEAL ECHOCARDIOGRAM REPORT DATE OF STUDY: February 16, 2018 INDICATIONS: CVA, rule out thrombus. DESCRIPTION OF PROCEDURE: After informed consent, patient was brought to the endoscopy suite. Patient's throat was sprayed with Cetacaine spray. Patient was anesthetized by the anesthesiologist. Transesophageal probe was passed without any difficulty and images obtained in the usual fashion. Patient tolerated the procedure without any complications. REPORT Left ventricle; is of normal size and systolic function. Overall estimated ejection fraction is about 50-55%. Left atrium; is of normal size. No spontaneous echo contrast or thrombus is seen in the left atrium or left atrial appendage. Right atrium; is of normal size. Right ventricle; is of normal size. Mitral valve; structurally normal with adequate valve excursion. No vegetation is seen on the mitral valve leaflets. Trivial mitral regurgitation is noted. Aortic valve; mildly thickened with adequate valve excursion. No vegetation is seen in the mitral valve leaflets. Trivial aortic regurgitation is noted. Tricuspid valve; structurally normal with adequate valve excursion. No vegetation is seen on tricuspid valve leaflets. Trace tricuspid regurgitation is noted. Pulmonic valve; the view as seen appears to be normal with adequate valve excursion. No obvious vegetations are noted. No regurgitant lesions are noted. Others, no pericardial effusion is noted. 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 There is right to left shunt across the interatrial septum on contrast injection suggestive of PFO. Aorta; mild atherosclerotic plaquing of the aorta is noted. CONCLUSIONS 1. Left ventricle normal size and systolic function. 2. The overall estimated ejection fraction about 55%. 3. Left atrium, right atrium, and right ventricle appeared to be of normal size. 4. No spontaneous echo contrast or thrombus seen in the left atrium or left atrial appendage. 5. Trace tricuspid regurgitation is noted. 6. 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 7. Right to left shunt across the interatrial septum on contrast injection suggestive of PFO. No intracardiac thrombi or vegetation noted. Job#: [id number] ROWDY
[2018-02-22 14:27] LABS: ALPHA 2 GLOBULIN URINE PEP 16.1 % (.)
== END 2018-02-18 15:28 | DRG 870 ==
LOC: ER 12:33 → ERHOLD 16:51 → ICU 19:02 → IMCU 02-12 11:02
PROVIDERS: ADMIT Internal Medicine; ATTEND Internal Medicine
PROC: 5A1955Z Respiratory Ventilation, Greater than 96 Consecutive Hours (ICD-10-PCS; principal; 2018-02-04)
PROC: 0BH17EZ Insertion of Endotracheal Airway into Trachea, Via Natural or Artificial Opening (ICD-10-PCS; 2018-02-04)
PROC: 4A023N7 Measurement of Cardiac Sampling and Pressure, Left Heart, Percutaneous Approach (ICD-10-PCS; 2018-02-07)
PROC: B2011ZZ Plain Radiography of Multiple Coronary Arteries using Low Osmolar Contrast (ICD-10-PCS; 2018-02-07)
PROC: B2051ZZ Plain Radiography of Left Heart using Low Osmolar Contrast (ICD-10-PCS; 2018-02-07)
PROC: 0DH63UZ Insertion of Feeding Device into Stomach, Percutaneous Approach (ICD-10-PCS; 2018-02-12)
PROC: 0DJ08ZZ Inspection of Upper Intestinal Tract, Via Natural or Artificial Opening Endoscopic (ICD-10-PCS; 2018-02-12)
PROC: 0DH64UZ Insertion of Feeding Device into Stomach, Percutaneous Endoscopic Approach (ICD-10-PCS; 2018-02-15)
PROC: 5A2204Z Restoration of Cardiac Rhythm, Single (ICD-10-PCS; 2018-02-16)
DX: A41.9 Sepsis, unspecified organism (principal); J96.02 Acute respiratory failure with hypercapnia; I21.4 Non-ST elevation (NSTEMI) myocardial infarction; N17.0 Acute kidney failure with tubular necrosis; J96.01 Acute respiratory failure with hypoxia; J13 Pneumonia due to Streptococcus pneumoniae; I63.411 Cerebral infarction due to embolism of right middle cerebral artery; J44.1 Chronic obstructive pulmonary disease with (acute) exacerbation; I50.30 Unspecified diastolic (congestive) heart failure; I47.1 Supraventricular tachycardia; K94.23 Gastrostomy malfunction; Q21.1 Atrial septal defect; R65.20 Severe sepsis without septic shock; F17.210 Nicotine dependence, cigarettes, uncomplicated; I11.0 Hypertensive heart disease with heart failure; A41.89 Other specified sepsis; E09.9 Drug or chemical induced diabetes mellitus without complications; T38.0X5A Adverse effect of glucocorticoids and synthetic analogues, initial encounter; K21.9 Gastro-esophageal reflux disease without esophagitis; F41.9 Anxiety disorder, unspecified; R13.12 Dysphagia, oropharyngeal phase; R41.0 Disorientation, unspecified; Y93.9 Activity, unspecified; Y92.230 Patient room in hospital as the place of occurrence of the external cause; E87.6 Hypokalemia; K20.9 Esophagitis, unspecified; K44.9 Diaphragmatic hernia without obstruction or gangrene; K29.70 Gastritis, unspecified, without bleeding; I48.91 Unspecified atrial fibrillation; W06.XXXA Fall from bed, initial encounter
CPT/HCPCS: 31500; 36415; 36600; 43246; 51700; 70450; 71045; 74018; 74230; 76604; 76700; 76770; 78582; 80048; 80053; 80061; 80202; 81001; 81015; 82550; 82553; 82805; 82948; 83036; 83880; 83970; 84100; 84132; 84165; 84166; 84443; 84484; 84550; 85025; 85610; 85730; 87040; 87070; 87071; 87086; 87186; 87205; 87400; 90732; 93005; 93306; 93312; 93320; 93325; 93458; 93880; 94002; 94003; 94640; 94660; 96361; 96372; 97139; 99284; A9540; A9558; J0692; J0696; J1160; J1630; J1644; J1650; J1940; J2001; J2250; J2405; J3370; J3480; J7030; J7050; J7060; J7070; J7512; Q9967

== ENCOUNTER → 2020-03-20 | Outpatient (CLI) | payer MEDICARE ==
[~2020-03-20] MED LIST changes: +GABAPENTIN300 MG PO; +IOPAMIDOL 370 MG/ML 200 ML INFUS..BTL INJ ONE; +METOPROLOL SUCC25 MG; +PAROXETINE HCL20 MG PO; +SODIUM CHLORIDE 0.9% 500ML 500 ML ONE; +SODIUM CHLORIDE 0.9% 50ML 50 ML ONE; +SYMBICORT 16010.2 GM INFIL; +VENTOLIN HFA18 GM INFIL
[2020-03-20 08:30] LABS: CREATININE, SERUM 0.97 mg/dL (0.57-1.11)
--- NOTE | 2020-03-20 10:12 | Diagnostic Imaging Report ---
Abdomen and Pelvis CTA with RUNOFF PROTOCOL WITH IV CONTRAST. INDICATION: Peripheral artery disease, left leg pain COMPARISON: None. TECHNIQUE: Abdomen and pelvis and lower extremities were scanned utilizing a multidetector helical scanner from the lung base to the toes after administration of IV contrast. Coronal and sagittal reformations were obtained. 3D post-processing of the images was performed, and the post-processed images were used in interpretation. CTA runoff protocol was performed. IV CONTRAST: 100mL of Isovue 370 ORAL CONTRAST: Water RADIATION DOSE: Total DLP: 610 mGy*cm FINDINGS: VESSELS: There are moderate calcified and noncalcified atherosclerotic plaques in the aorta and its major branches. There is no evidence of a flap within the aorta to suggest a dissection. No abdominal aortic aneurysm. Atherosclerotic calcifications at the celiac and SMA origins result in mild celiac artery stenosis and moderate proximal SMA stenosis. The BANDAR is patent. Single left and single right renal arteries are patent with mild atherosclerotic calcifications at the origins. Right lower extremity: The common femoral artery, superficial femoral artery, and popliteal artery are patent, and there is a patent 3-vessel run-off. There is no significant atherosclerotic disease in the common iliac artery, common femoral, or popliteal artery. Left lower extremity: Moderate atherosclerotic calcifications at the mid and distal common femoral artery result in mild to moderate multifocal stenosis including at the femoral bifurcation. The SFA, popliteal artery and profunda femoris are widely patent. Three-vessel runoff to the level of the ankle. NON-VASCULAR: LOWER THORAX: No focal lung base consolidation. HEPATOBILIARY: Mild diffuse hepatic steatosis. There is pneumobilia involving the intrahepatic and extrahepatic bile ducts as well as air within the lumen of the gallbladder. Adjacent to the gallbladder and seemingly within the duodenal lumen, there is a 1.7 cm heavily calcified spherical structure, most likely representing a gallstone within the duodenal lumen secondary to fistulization between the gallbladder and small bowel. No gallbladder wall thickening, pericholecystic fluid, or associated abscess formation. SPLEEN: No splenomegaly. PANCREAS: Atrophic. ADRENALS: No adrenal nodules. KIDNEYS/URETERS: No hydronephrosis, stones, or solid mass lesions. PELVIC ORGANS/BLADDER: Unremarkable. PERITONEUM / RETROPERITONEUM: No free air or fluid. LYMPH NODES: No lymphadenopathy. GI TRACT: No abnormal bowel thickening. No bowel obstruction. Relatively increased stool burden throughout the distal colon. BONES AND SOFT TISSUES: No acute osseous injury. No suspicious lytic or blastic lesions. Multilevel degenerative changes of the lumbar spine with levoconvex curvature. Severe degenerative changes of the right hip joint with [id number] contact, osteophyte formation, subchondral sclerosis and subchondral cystic change. Mild degenerative changes of the right hip joint. Left greater than right moderate tricompartmental degenerative changes of both knees. Moderate left suprapatellar joint effusion. IMPRESSION: Moderate atherosclerotic calcifications at the mid and distal common femoral artery results in mild to moderate multifocal stenoses including at the femoral bifurcation. No other hemodynamically significant stenoses of the right lower extremity arteries. Bilateral three-vessel runoff. Findings consistent with fistulization of the gallbladder to the small bowel with a gallstone within the duodenal lumen and pneumobilia of the gallbladder and intrahepatic and extrahepatic bile ducts. The above findings were discussed with Dr. Bansal on 03/20/2020 9:41 AM, who responded indicating that the communication was understood. Signed by: Jamir Hernández MD on 03/20/2020 10:08 AM
== END ==
LOC: CT 07:47
PROVIDERS: ATTEND Internal Medicine
DX: I70.209 Unspecified atherosclerosis of native arteries of extremities, unspecified extremity (principal)
CPT/HCPCS: 36415; 75635; 82565; 84520; 96360; J7040; Q9967